=== PATIENT | female | born 1935 | race Caucasian/White ===

== ENCOUNTER 2016-06-13 01:08 | Inpatient (IN) | payer OTHER, BC ==
--- NOTE | 2016-06-13 01:34 | PDOC ---
History of Present Illness - General History Source: Patient Exam Limitations: No Limitations - History of Present Illness Initial Comments: 06/13/16 02:03 The patient is an 81 year old female with a PMHx of HTN who presents to the ED s /p fall. Patient states that she was taking a drying rack changer out of her closet when she lost her balance and fell backwards on her right hip. She now complains of right hip pain. She denies headache, dizziness, LOC, vision changes. She denies chest pain, SOB, palpitations. She denies fever, chills, nausea, vomiting, diarrhea. <Racheal Kyle - Last Filed: 06/13/16 04:51> <Jaylin Huang - Last Filed: 06/13/16 06:19> - General Stated Complaint: FALL, HIP PAIN Time Seen by Provider: 06/13/16 01:21 Past History <Racheal Kyle - Last Filed: 06/13/16 04:51> - Past Medical History Anemia: No Asthma: No Cancer: No Cardiac Disorders: No CVA: No COPD: No CHF: No Dementia: No Diabetes: No Disorders: No HTN: Yes (pt denies) Hypercholesterolemia: No Liver Disease: No Seizures: No Thyroid Disease: No - Surgical History Appendectomy: Yes Orthopedic Surgery: Yes (LT HIP) - Psycho/Social/Smoking Cessation Hx Anxiety: No Suicidal Ideation: No Smoking History: Never smoked Have you smoked in the past 12 months: No If you are a former smoker, when did you quit?: 1985 Hx Alcohol Use: No Drug/Substance Use Hx: No Substance Use Type: None Hx Substance Use Treatment: No <Jaylin Huang - Last Filed: 06/13/16 06:19> - Past Medical History Allergies/Adverse Reactions: Allergies Allergy/AdvReac Type Severity Reaction Status Date / Time No Known Allergies Allergy Verified 12/04/15 12:58 Review of Systems - Review of Systems Comments:: 06/13/16 02:03 GENERAL/CONSTITUTIONAL: No fever or chills. No weakness. HEAD, EYES, EARS, NOSE AND THROAT: No change in vision. No ear pain or discharge. No sore throat. CARDIOVASCULAR: No chest pain or shortness of breath. RESPIRATORY: No cough, wheezing, or hemoptysis. GASTROINTESTINAL: No nausea, vomiting, diarrhea or constipation. GENITOURINARY: No dysuria, frequency, or change in urination. MUSCULOSKELETAL: + right hip pain. No neck or back pain. SKIN: No rash NEUROLOGIC: No headache, vertigo, loss of consciousness, or change in strength/ sensation. ENDOCRINE: No increased thirst. No abnormal weight change. HEMATOLOGIC/LYMPHATIC: No anemia, easy bleeding, or history of blood clots. ALLERGIC/IMMUNOLOGIC: No hives or skin allergy. <Racheal Kyle - Last Filed: 06/13/16 04:51> *Physical Exam - Vital Signs Last Vital Signs Temp Pulse Resp BP Pulse Ox 98.3 F 74 16 182/69 6 L 06/13/16 01:21 06/13/16 01:21 06/13/16 01:21 06/13/16 01:21 06/13/16 01:21 - Physical Exam Comments: 06/13/16 02:03 GENERAL: Awake, alert, and fully oriented, in no acute distress HEAD: No signs of trauma EYES: PERRLA, EOMI, sclera anicteric, conjunctiva clear ENT: Auricles normal inspection, hearing grossly normal, nares patent, oropharynx clear without exudates. Moist mucosa NECK: Normal ROM, supple, no lymphadenopathy, JVD, or masses LUNGS: Breath sounds equal, clear to auscultation bilaterally. No wheezes, and no crackles HEART: Regular rate and rhythm, normal S1 and S2, no murmurs, rubs or gallops ABDOMEN: Soft, nontender, normoactive bowel sounds. No guarding, no rebound. No masses EXTREMITIES: Tenderness to palpation at greater trochanter. Normal range of motion, no edema. No clubbing or cyanosis. No cords, erythema. NEUROLOGICAL: Cranial nerves II through XII grossly intact. Normal speech, normal gait SKIN: Warm, Dry, normal turgor, no rashes or lesions noted. <Racheal Kyle - Last Filed: 06/13/16 04:51> ED Treatment Course - RADIOLOGY Radiograph Interpretation: 06/13/16 04:11 Right Hip X-Ray and Right Pelvis X-Ray Reported by Dr. Arthur Brown Impression: Linear lucency in the lateral subcapital femoral neck may be due to a nondisplaced fracture. If clinically indicated followup evaluation with CT scan of the right hip may be needed. 02/20/17 04:51 CT pelvis without contrast Reported by Dr. Arthur Brown Impression: Comminuted nondisplaced fractures of the right greater trochanter extending into the lateral femoral neck cortex. <Rachela Kyle - Last Filed: 06/13/16 04:51> Medical Decision Making - Medical Decision Making 06/13/16 02:51 Patient Name: Shahla Espinosa THIS IS A PRELIMINARY REPORT FROM IMAGING MACHINE BENDER EXAM: X-ray right hip and x-ray pelvis IMAGES: 5 EXAM DATE AND TIME: 2016-06-13 01:49:42.0 REASON FOR EXAM: 81 year-old female fall. COMPARISON: None. FINDINGS : Linear lucency in the lateral subcapital femoral neck may be due to a nondisplaced fracture. Decreased bone density. Surgical clips in the pelvis. Left hip arthroplasty noted. Degenerative disc disease in the lower lumbar spine. Calcified arteriosclerosis noted. IMPRESSION Linear lucency in the lateral subcapital femoral neck may be due to a nondisplaced fracture. If clinically indicated followup evaluation with CT scan of the right hip may be needed. THIS DOCUMENT HAS BEEN ELECTRONICALLY SIGNED 06/13/16 04:53 THIS IS A PRELIMINARY REPORT FROM IMAGING MACHINE BENDER EXAM: CT pelvis without contrast IMAGES: 894 EXAM DATE AND TIME: 2016-06-13 03:47:34.0 REASON FOR EXAM: 81-year-old female fall. COMPARISON: June 13, 2016 FINDINGS: Comminuted nondisplaced fractures of the right greater trochanter extending into the lateral femoral neck cortex. Severe degenerative disc disease and severe degenerative joint disease of the facets the lower lumbar spine. Severe spinal canal stenosis at L4-5. Moderate to severe neural foraminal narrowing at L4-5 and L5-S1. Moderate bladder distention may be associated with incomplete bladder voiding and pelvic floor muscle weakness. Constipation with diverticulosis without diverticulitis. Moderate calcified arteriosclerosis. Left hip arthroplasty noted. Mild degenerative joint disease of the right sacroiliac joint. Small umbilical hernia of omental fat without incarceration. IMPRESSION Comminuted nondisplaced fractures of the right greater trochanter extending into the lateral femoral neck cortex. THIS DOCUMENT HAS BEEN ELECTRONICALLY SIGNED 06/13/16 06:15 Pt states that she has baseline unsteady gait. She was in her apartment, where she lives alone, though she is a tenant in her brother's home. She states that she fell backwards and injured her left hip. She managed to drag herself to the phone and called her son in [place]. He came with EMS and brought pt to the ER. Pt has a hx of left hip replacement. She is alert and awake. She has slight pain in the hip with movement. Hip XR is unclear, but her CT scan shows a clear fracture. Pt was admitted to Dr. Meade, who is covering Dr. Gipson. <Jaylin Huang - Last Filed: 06/13/16 06:19> *DC/Admit/Observation/Transfer - Attestations Scribe Attestion: 06/13/16 02:04 Documentation prepared by Racheal Kyle, acting as medical stenographer for Jaylin Huang MD. <Racheal Kyle - Last Filed: 06/13/16 04:51> - Discharge Dispostion Admit: Yes <Jaylin Huang - Last Filed: 06/13/16 06:19> Diagnosis at time of Disposition: Hip fracture, right - Referrals
[2016-06-13] MEDS ORDERED: morphine CARPU-JECT 2 MG/1 ML DISP.SYRIN IM ONE (01:46)
[2016-06-13] MEDS ORDERED: morphine CARPU-JECT 2 MG/1 ML DISP.SYRIN ONE (02:14)
[2016-06-13] MEDS ORDERED: BACLOFEN 10 MG TABLET (FP) PO PRN (05:08)
[2016-06-13 06:36] LABS: BASOPHIL 0.5 % (0-2.0); EOSINOPHIL 1.1 % (0-4.5); MCH 30.7 pg (25.7-33.7); MCHC 33.8 g/dl (32.0-36.0); MEAN CELL VOLUME 90.9 fl (80-96); MEAN PLT VOLUME 7.8 fl (7.5-11.1); NEUTROPHILS 76.7 % (42.8-82.8); PLATELET COUNT 269 K/MM3 (134-434); RDW 15.1 % (11.6-15.6); WHITE BLOOD COUNT 8.7 K/mm3 (4.0-10.0)
[2016-06-13 07:24] LABS: ALBUMIN 3.6 g/dl (3.4-5.0); ALK PHOS 80 U/L (45-117); ANION GAP 10 (8-16); BILIRUBIN,TOTAL 0.6 mg/dL (0.2-1.0); CALCIUM 8.4 mg/dL (8.5-10.1); CO2 27 mmol/L (21-32); CREATININE 0.8 mg/dL (0.55-1.02); GLUCOSE,RANDOM 122 mg/dL (74-106); SGPT/ALT 23 U/L (12-78); TOT PROT 6.8 g/dl (6.4-8.2)
[2016-06-13 07:26] LABS: INR 1.13 (0.82-1.09); PROTHROMBIN TIME (PATIENT) 12.5 SEC (9.98-11.88); SGOT/AST 30 U/L (15-37)
[2016-06-13 09:05] LABS: URINE APPEARANCE SLCLOUDY; URINE BILIRUBIN NEGATIVE (NEGATIVE); URINE COLOR STRAW; URINE GLUCOSE (UA) NEGATIVE (NEGATIVE); URINE KETONE NEGATIVE (NEGATIVE); URINE NITRITE POSITIVE (NEGATIVE); URINE PROTEIN NEGATIVE (NEGATIVE); URINE UROBILINOGEN NEGATIVE E.U./dl (0.2-1.0)
[2016-06-13 09:06] LABS: URINE BLOOD 1+ (NEGATIVE); URINE LEUK ESTERASE 3+ (NEGATIVE)
[2016-06-13 09:14] LABS: URINE BACTERIA RARE /hpf (NONE SEEN); URINE RBC 3 /hpf (0-3); URINE WBC 40 /hpf (3-5)
[2016-06-13] MEDS: LISINOPRIL 10 MG TABLET (FP) PO SCH (10:00)
[2016-06-13] MEDS: amLODIPine BESYLATE 10 MG TABLET (FP) PO SCH (10:00)
--- NOTE | 2016-06-13 11:46 | HP ---
Admitting History and Physical - Admission Chief Complaint: leg pain, s/p fall History of Present Illness: 81 yo female presents to the hospital with right leg pain after falling. Patient notes that she had been reaching in her room to hang up her sweater when she suddenly started to fall backwards and then fell to the gound. No loss of consciousness or dizziness at the time. Did have a fall last year as well, requiring arthroplasty of left hip. In ED noted to have non-displaced fracture of the right femur. Patient currently without pain when lying still. No recent fevers or shortness of breath. Has noted increased urination in ED, trying to get up frequently to urinate. ( Grant placed in ED) History Source: Patient, Medical Record Limitations to Obtaining History: No Limitations - Past Medical History Cardiovascular: Yes: HTN Gastrointestinal: Yes: Constipation, Other (adenomatous colon polyp) Endocrine: Yes: Diabetes Mellitus - Past Surgical History Past Surgical History: Yes: Appendectomy Additional Past Surgical History: Left hip arthroplasty s/p fall - Smoking History Smoking history: Never smoked Have you smoked in the past 12 months: No If you are a former smoker, when did you quit?: 1985 - Alcohol/Substance Use Hx Alcohol Use: No History of Substance Use: reports: None - Social History ADL: Independent 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 History of Recent Travel: No Home Medications - Allergies Allergies/Adverse Reactions: Allergies Allergy/AdvReac Type Severity Reaction Status Date / Time No Known Allergies Allergy Verified 12/04/15 12:58 - Home Medications Home Medications: Ambulatory Orders Aleve 1 tablet PO TID PRN 06/13/16 Family Disease History - Family Disease History Family Disease History: CA: Father ( 87 lung cancer), Mother ( 92 lung cancer), Sister (lung cancer) Review of Systems - Review of Systems Constitutional: denies: Chills, Fever, Loss of Appetite, Night Sweats Eyes: reports: No Symptoms HENT: denies: Difficult Swallowing, Epistaxis, Throat Pain Neck: reports: No Symptoms Cardiovascular: denies: Chest Pain, Palpitations Respiratory: denies: Cough, SOB Gastrointestinal: denies: Abdominal Pain, Diarrhea, Dysphagia, Nausea, Vomiting Genitourinary: denies: Burning, Discharge, Dysuria Neurological: denies: Change in LOC, Dizziness Physical Examination Vital Signs: Vital Signs Temperature 98.2 F 06/13/16 09:20 Pulse Rate 81 02/20/17 09:55 Respiratory Rate 16 06/13/16 09:55 Blood Pressure 153/93 06/13/16 09:55 O2 Sat by Pulse Oximetry (%) 94 L 06/13/16 09:55 Constitutional: Yes: No Distress, Calm Eyes: Yes: Conjunctiva Clear, EOM Intact, PERRL HENT: Yes: Atraumatic, Normocephalic Neck: Yes: Supple, Trachea Midline Cardiovascular: Yes: Regular Rate and Rhythm, S1, S2. No: Murmur Respiratory: Yes: Regular, CTA Bilaterally. No: Rales, Rhonchi, Wheezes Gastrointestinal: Yes: Normal Bowel Sounds, Soft. No: Distention, Tenderness Musculoskeletal: Yes: Other (pain to palpation right hip) Edema: No Neurological: Yes: Alert, Oriented Labs: CBC, BMP 06/13/16 06:31 06/13/16 06:31 Imaging - Results Chest X-ray: Report Reviewed (no acute lung disease) Cat Scan: Report Reviewed (non-displavced fracture greater trochanter right femur) Problem List - Problems (1) Hip fracture, right Assessment/Plan: -to be evaluated by ortho -may need arthroplasty -pain control Code(s): S72.001A - FRACTURE OF UNSP PART OF NECK OF RIGHT FEMUR, INIT (2) UTI (urinary tract infection) Assessment/Plan: -start Ceftriaxone for UTI Code(s): N39.0 - URINARY TRACT INFECTION, SITE NOT SPECIFIED (3) Hypertension Assessment/Plan: -on amlodipine and lisinopril Code(s): I10 - ESSENTIAL (PRIMARY) HYPERTENSION (4) Spinal stenosis Assessment/Plan: -prn muscle relaxant ordered (takes Baclofen at home) Code(s): M48.00 - SPINAL STENOSIS, SITE UNSPECIFIED Qualifiers: Spinal region: lumbar Qualified Code(s): M48.06 - Spinal stenosis, lumbar region
[2016-06-13 12:21] VITALS: BMI 55.0
[2016-06-13] MEDS: CEFTRIAXONE 50 ML IVPB SCH (13:07)
--- NOTE | 2016-06-13 16:13 | EKG ---
Test Reason : Blood Pressure : / mmHG Vent. Rate : 077 BPM Atrial Rate : 077 BPM P-R Int : 128 ms QRS Dur : 078 ms QT Int : 380 ms P-R-T Axes : 047 041 023 degrees QTc Int : 430 ms SINUS RHYTHM WITH MARKED SINUS ARRHYTHMIA SEPTAL INFARCT , AGE UNDETERMINED ABNORMAL ECG WHEN COMPARED WITH ECG OF 04-DEC-2015 12:57, SEPTAL INFARCT IS NOW PRESENT T WAVE VARIATION Confirmed by DEE HYMAN, BECKY ([id number]) on 06/13/2016 4:12:41 PM Referred By: Confirmed By:BECKY PRICE MD
[2016-06-13] MEDS: oxyCODONE HCL 5 MG TABLET PO PRN (21:40)
--- NOTE | 2016-06-14 08:11 | CONSULT ---
Consult - text type - Consultation Consultation Note: FULL CONSULT DICTATED IMP: RIGHT GREATER TROCHANTER FX PLAN: WBAT WITH ANALGESICS, PT, DC PLANNING --> PROBABLY WILL NEED SNF
--- NOTE | 2016-06-14 08:30 | CONS ---
DATE OF CONSULTATION: 06/14/2016 ORTHOPEDIC CONSULTATION/DINORAH STEPHEN: Patient is an 81-year-old female complaining of pain in her right hip status post fall. She was initially seen in the [facility] diagnosed with a hip fracture and admitted to [facility] for further orthopedic evaluation and possible operative intervention, negative LOC. PHYSICAL EXAMINATION: The patient has equal limb length. Some mild tenderness over the greater trochanter. No pubic tenderness. No groin tenderness. Ileum, SI joint, and sacrum are all without tenderness. Mild swelling in the proximal thigh. Calf is soft, nontender. Good range of motion in the ankle and toes. Patient has minimal pain with internal and external rotation of the hip, has difficulty with straight-leg raising, but with assistance, can perform it. Otherwise, neurovascularly intact. IMAGING: X-rays and CT scan evaluation revealed a non-displaced fracture of the right greater trochanter with no extension into the intertrochanteric or femoral neck region. IMPRESSION: Right intertrochanteric hip fracture. PLAN: No operative intervention required. Patient can be out of bed to chair, weightbearing as tolerated with analgesics, physical therapy. Patient may need SNF placement. Will follow the patient while in the hospital. Thank you for this consultation. VIJAY PURVIS M.D. [id number]
[2016-06-14 08:45] LABS: CALCIUM 8.7 mg/dl (8.4-10.2)
[2016-06-14 09:29] LABS: BASOPHIL 0.4 % (0-2.0); EOSINOPHIL 5.4 % (0-4.5); MCH 30.3 pg (25.7-33.7); MCHC 32.8 g/dl (32.0-36.0); MEAN CELL VOLUME 92.4 fl (80-96); MEAN PLT VOLUME 7.6 fl (7.5-11.1); NEUTROPHILS 60.5 % (42.8-82.8); PLATELET COUNT 248 K/MM3 (134-434); RDW 14.3 % (11.6-15.6); WHITE BLOOD COUNT 5.8 K/mm3 (4.0-10.0)
[2016-06-14] MEDS: amLODIPine BESYLATE 10 MG TABLET (FP) PO SCH (09:51)
[2016-06-14] MEDS: CEFTRIAXONE 50 ML IVPB SCH (09:52)
[2016-06-14] MEDS: LISINOPRIL 10 MG TABLET (FP) PO SCH (09:57)
--- NOTE | 2016-06-14 12:20 | PN ---
Physical Exam: SUBJECTIVE: Patient seen and examined, patient reports pain to right posterior hip, denies any dizziness, chest pain or shortness of breath. OBJECTIVE: patient is a 81 y/o female with a past medical history of hypertension. Patient was admitted from the emergency department for a nondisplaced fracture of the right great trachanter. Vital Signs Period Temp Pulse Resp BP Sys/[place] Pulse Ox Last 24 Hr 97.7 F-100.1 F 66-87 16-18 127-152/46-53 94-94 GENERAL: The patient is awake, alert, and fully oriented, in no acute distress. HEAD: Normal with no signs of trauma. EYES: PERRL, extraocular movements intact, sclera anicteric, conjunctiva clear. No ptosis. ENT: Ears normal, nares patent, oropharynx clear without exudates, moist mucous membranes. NECK: Trachea midline, full range of motion, supple. LUNGS: Breath sounds equal, clear to auscultation bilaterally, no wheezes, no crackles, no accessory muscle use. HEART: Regular rate and rhythm, S1, S2 without murmur, rub or gallop. ABDOMEN: Soft, nontender, nondistended, normoactive bowel sounds, no guarding, no rebound, no hepatosplenomegaly, no masses. : terry draining clear yellow urine EXTREMITIES: 2+ pulses, warm, well-perfused, no edema. pain to right posterior hip upon bearing weight on the extremity. point tenderness noted to the Sciatic notch NEUROLOGICAL: Cranial nerves II through XII grossly intact. Normal speech, gait not observed. PSYCH: Normal mood, normal affect. SKIN: Warm, dry, normal turgor, no rashes or lesions noted Laboratory Results - last 24 hr 06/14/16 06/14/16 07:30 07:30 WBC 5.8 RBC 3.63 Hgb 11.0 Hct 33.5 MCV 92.4 MCHC 32.8 RDW 14.3 Plt Count 248 MPV 7.6 Neutrophils % 60.5 Lymphocytes % 25.8 Monocytes % 7.9 Eosinophils % 5.4 H Basophils % 0.4 Sodium 140 Potassium 4.0 Chloride 104 Carbon Dioxide 30 H Anion Gap 6 L BUN 14 Creatinine 1.0 Random Glucose 133 H Calcium 8.7 Active Medications Generic Name Dose Route Start Last Admin Trade Name Freq PRN Reason Stop Dose Admin Amlodipine Besylate 10 mg 06/13/16 10:00 06/14/16 09:51 Norvasc - PO 10 mg DAILY LEODAN Administration Baclofen 10 mg 06/13/16 05:08 Lioresal - PO TID PRN BACK PAIN Ceftriaxone Sodium 50 mls @ 100 mls/hr 06/13/16 12:15 06/14/16 09:52 Rocephin 1gm Ivpb (Pre-Docked) IVPB 100 mls/hr DAILY LEODAN Administration Lactobacillus Acidophilus 1 tab 06/14/16 12:00 Bacid - PO DAILY LEODAN Lisinopril 10 mg 06/13/16 10:00 06/14/16 09:57 Prinivil PO Not Given DAILY LEODAN Ondansetron HCl 4 mg 06/14/16 11:57 Zofran Injection IVPB 06/14/16 11:58 ONCE ONE Oxycodone HCl 5 mg 06/13/16 05:08 06/13/16 21:40 Roxicodone - PO 5 mg Q4H PRN Administration MODERATE PAIN Microbiology 06/13/16 08:51 Urine - Urine - Catheterized Urine Culture - Preliminary Lactose Fermenting Neg Bacilli IMAGING ct pelvis w/o contrast, comminuted nondisplaced fracture of the greater trochanter of the right femur with no additional fracture of dislocation chest xray, no acute pathology ASSESSMENT/PLAN: 1) ortho nondisplaced right greater trochanter fracture of right femur - prn pain medication - orthopedist, Dr Maciel was consulted and following, weight bearing as tolerated - PT eval spinal stenosis - physical exam consistent with sciatica, continue prn baclofen 2) card hypertension - continue amlopdine and lisinopril - b/p at goal 3) urinary tract infection - urine culture, preliminary lactose fermenting neg bacilli, continue rocephin, awaiting final to narrow down antibiotics - d/c terry F/E/N - low sodium diet ppx - zantac - heparin - oob - pt - scd dispo: requires inpatient care, possible discharge tomm to SNF for short term rehab. case discussed with case management. Visit type - Emergency Visit Emergency Visit: Yes ED Registration Date: 06/13/16 Care time: The patient presented to the Emergency Department on the above date and was hospitalized for further evaluation of their emergent condition. - New Patient This patient is new to me today: Yes Date on this admission: 06/14/16 - Critical Care Critical Care patient: No - Discharge Referral Referred to [facility] No
[2016-06-14] MEDS ORDERED: ACETAMINOPHEN 1000 MG/100 ML VIAL (NON FORMULARY) IVPB ONE (12:30)
[2016-06-14] MEDS ORDERED: ONDANSETRON 4 MG/2 ML VIAL IVPB ONE (12:30)
[2016-06-14] MEDS: LACTOBACILLUS ACIDOPHILUS 1 EACH TAB (FP) PO SCH (12:34)
[2016-06-14] MEDS: RANITIDINE HCL 150 MG TABLET (FP) PO SCH (13:52)
[2016-06-14] MEDS: oxyCODONE HCL 5 MG TABLET PO PRN (21:45)
[2016-06-14] MEDS: HEPARIN NA (PORCINE) 5,000 UNITS/ML 1ML VIAL SQ SCH (22:36)
--- NOTE | 2016-06-15 07:50 | PN ---
Progress Note (short form) - Note Progress Note: Ortho Pt seen and examined s/p right greater troch fx +ttp, + swelling, calf soft, nt nvi a/p PT WBAt dvt ppx pain control d/c planning d/w Dr. Maciel
[2016-06-15] MEDS: HEPARIN NA (PORCINE) 5,000 UNITS/ML 1ML VIAL SQ SCH ×2 (09:22→21:47)
[2016-06-15] MEDS: CEFTRIAXONE 50 ML IVPB SCH (09:22)
[2016-06-15] MEDS: LACTOBACILLUS ACIDOPHILUS 1 EACH TAB (FP) PO SCH (09:22)
[2016-06-15] MEDS: LISINOPRIL 10 MG TABLET (FP) PO SCH (09:22)
[2016-06-15] MEDS: RANITIDINE HCL 150 MG TABLET (FP) PO SCH (09:22)
[2016-06-15] MEDS: amLODIPine BESYLATE 10 MG TABLET (FP) PO SCH (09:22)
[2016-06-15] MEDS: oxyCODONE HCL 5 MG TABLET PO PRN (10:02)
--- NOTE | 2016-06-15 16:33 | PN ---
Progress Note, Physician Chief Complaint: Ms Espinosa says she is still having pain in her R hip but it is improving. No cp , sob, n/v. - Current Medication List Current Medications: Active Medications Amlodipine Besylate (Norvasc -) 10 mg PO DAILY [facility] Last Admin: 06/15/16 09:22 Dose: 10 mg Baclofen (Lioresal -) 10 mg PO TID PRN PRN Reason: BACK PAIN Heparin Sodium (Porcine) (Heparin -) 5,000 unit SQ BID [facility] Last Admin: 06/15/16 09:22 Dose: 5,000 unit Ceftriaxone Sodium (Rocephin 1gm Ivpb (Pre-Docked)) 50 mls @ 100 mls/hr IVPB DAILY [facility] Last Admin: 06/15/16 09:22 Dose: 100 mls/hr Lactobacillus Acidophilus (Bacid -) 1 tab PO DAILY [facility] Last Admin: 06/15/16 09:22 Dose: 1 tab Lisinopril (Prinivil) 10 mg PO DAILY [facility] Last Admin: 06/15/16 09:22 Dose: 10 mg Oxycodone HCl (Roxicodone -) 5 mg PO Q4H PRN PRN Reason: MODERATE PAIN Last Admin: 06/15/16 10:02 Dose: 5 mg Ranitidine HCl (Zantac -) 150 mg PO DAILY [facility] Last Admin: 06/15/16 09:22 Dose: 150 mg - Objective Vital Signs: Vital Signs Temperature 98.5 F 06/15/16 14:08 Pulse Rate 69 06/15/16 14:08 Respiratory Rate 16 06/15/16 14:08 Blood Pressure 156/56 06/15/16 14:08 O2 Sat by Pulse Oximetry (%) 91 L 06/15/16 14:08 Constitutional: Yes: Well Nourished, No Distress, Calm Cardiovascular: Yes: Regular Rate and Rhythm. No: Gallop, Murmur, Rub Respiratory: Yes: Regular, CTA Bilaterally. No: Rales, Rhonchi, Wheezes Gastrointestinal: Yes: Normal Bowel Sounds, Soft. No: Distention, Tenderness Extremities: Yes: WNL Edema: No Labs: CBC, BMP 06/14/16 07:30 06/14/16 07:30 INR, PTT INR 1.13 (0.82-1.09) 06/13/16 06:31 Problem List - Problems (1) Hip fracture, right Assessment/Plan: -followed by ortho, no need for intervention -continue pain control and PT -plan for discharge to SNF tomorrow Code(s): S72.001A - FRACTURE OF UNSP PART OF NECK OF RIGHT FEMUR, INIT (2) UTI (urinary tract infection) Assessment/Plan: -growing citrobacter -sensitive to rocephin, day 3 -will change to oral augmentin tomorrow for 5 day course Code(s): N39.0 - URINARY TRACT INFECTION, SITE NOT SPECIFIED (3) Hypertension Assessment/Plan: -continue lisinopril and amlodipine Code(s): I10 - ESSENTIAL (PRIMARY) HYPERTENSION (4) Spinal stenosis Assessment/Plan: -continue baclofen -PT at SNF Code(s): M48.00 - SPINAL STENOSIS, SITE UNSPECIFIED Qualifiers: Spinal region: lumbar Qualified Code(s): M48.06 - Spinal stenosis, lumbar region
[2016-06-16 06:38] VITALS: BP 157/49; PULSE 70; TEMP 99.5
[2016-06-16] MEDS ORDERED: AMOX TR/POT CLAV 875MG/125MG TABLETS (FP) PO SCH (08:00)
--- NOTE | 2016-06-16 08:42 | PN ---
Progress Note (short form) - Note Progress Note: Ortho Pt seen and examined s/p right greater troch fx +ttp, incr rom, calf soft, nt nvi a/p PT WBAt dvt ppx pain control d/c to rehab today d/w Dr. Maciel
--- NOTE | 2016-06-16 09:28 | DS ---
Physical Examination Vital Signs: Vital Signs Temperature 99.5 F 06/16/16 06:37 Pulse Rate 70 06/16/16 06:37 Respiratory Rate 18 06/16/16 06:37 Blood Pressure 157/49 06/16/16 06:37 O2 Sat by Pulse Oximetry (%) 96 06/16/16 06:37 Constitutional: Yes: Well Nourished, No Distress, Calm Cardiovascular: Yes: Regular Rate and Rhythm. No: Gallop, Murmur, Rub Respiratory: Yes: Regular, CTA Bilaterally. No: Rales, Rhonchi, Wheezes Gastrointestinal: Yes: Normal Bowel Sounds, Soft. No: Distention, Tenderness Extremities: Yes: WNL Edema: No Labs: CBC, BMP 06/14/16 07:30 06/14/16 07:30 Discharge Summary Reason For Visit: HIP FRACTURE, RIGHT Current Active Problems Acute kidney failure (Acute) DVT prophylaxis (Acute) Diabetes (Acute) Fracture of left hip (Acute) Hip fracture, right (Acute) Hypertension (Acute) Intractable low back pain (Acute) Hospital Course: (1) Hip fracture, right Code(s): S72.001A - FRACTURE OF UNSP PART OF NECK OF RIGHT FEMUR, INIT (2) UTI (urinary tract infection) Code(s): N39.0 - URINARY TRACT INFECTION, SITE NOT SPECIFIED (3) Hypertension Code(s): I10 - ESSENTIAL (PRIMARY) HYPERTENSION (4) Spinal stenosis Code(s): M48.00 - SPINAL STENOSIS, SITE UNSPECIFIED Qualifiers: Spinal region: lumbar Qualified Code(s): M48.06 - Spinal stenosis, lumbar region Ms Espinosa is a very pleasant 81 year old female who comes in with fall and hip fracture. She was seen by ortho and decided she did not require surgery. However she needs further PT at a SNF for rehabilitation. She was also found to have a UTI and started on rocephin. Urine culture came back positive for citrobacter that was sensitive to both rocephin and augmentin, she was changed over to augmentin to finish the course. She was continued on amlodipine and lisinopril and her blood pressure was controlled. Her pain is controlled with baclofen and oxycodone. She is safe for discharge to SNF. She will be continued on heparin as DVT PPx while in SNF until she is ambulating enough to not need DVT PPx. 35 minutes spent in preparation of this discharge Condition: Good - Instructions Diet, Activity, Other Instructions: regular diet. Up with assistance, further activity per PT at SNF. Referrals: Curtis Gipson MD [Primary Care Provider] - Fercho Maciel MD [Staff Physician] - Disposition: LONGTERM FACILITY - Home Medications Comprehensive Discharge Medication List: Ambulatory Orders Amlodipine Besylate [Norvasc -] 10 mg PO DAILY tablet 06/16/16 Amox-Tr/K Cl [Augmentin 875-125mg Tablet -] 1 tab PO BID@0800,1730 2 Days Baclofen [Lioresal -] 10 mg PO TID PRN #0 tablet 06/16/16 Heparin - 5,000 unit SQ BID vial 06/16/16 Lactobacillus Acidophilus [Bacid -] 1 tab PO DAILY tab 06/16/16 Lisinopril [Prinivil] 10 mg PO DAILY tablet 06/16/16 Oxycodone HCl [Roxicodone -] 5 mg PO Q4H PRN #0 tablet MDD 30mg 06/16/16 Ranitidine [Zantac -] 150 mg PO DAILY tablet 06/16/16
[2016-06-16] MEDS: HEPARIN NA (PORCINE) 5,000 UNITS/ML 1ML VIAL SQ SCH (09:32)
[2016-06-16] MEDS: LACTOBACILLUS ACIDOPHILUS 1 EACH TAB (FP) PO SCH (09:33)
[2016-06-16] MEDS: LISINOPRIL 10 MG TABLET (FP) PO SCH (09:33)
[2016-06-16] MEDS: RANITIDINE HCL 150 MG TABLET (FP) PO SCH (09:33)
[2016-06-16] MEDS: amLODIPine BESYLATE 10 MG TABLET (FP) PO SCH (09:33)
== END 2016-06-16 11:39 | DRG 536 ==
LOC: JER 01:08 → JERBED 05:01 → FM/S 11:36
PROVIDERS: ADMIT Specialist; ATTEND Orthopaedic Surgery
DX: S72.144A Nondisplaced intertrochanteric fracture of right femur, initial encounter for closed fracture (principal); N39.0 Urinary tract infection, site not specified; I10 Essential (primary) hypertension; W17.89XA Other fall from one level to another, initial encounter; Y93.89 Activity, other specified; Y92.008 Other place in unspecified non-institutional (private) residence as the place of occurrence of the external cause; Y99.8 Other external cause status; M48.06 Spinal stenosis, lumbar region
CPT/HCPCS: 36415; 71010-TC; 72192-TC; 73523-TC; 80048; 80053; 81003; 81015; 85025; 85610; 85730; 86850; 86900; 86901; 87086; 87186; 93005; 93010; 97116-GP; 97162-PG; 99285-25; J1644

== ENCOUNTER 2016-06-18 00:17 | Emergency (ER) | payer OTHER, BC ==
[2016-06-18 00:25] VITALS: BP 163/74; PULSE 75; TEMP 98.1; BMI 26.6
--- NOTE | 2016-06-18 00:33 | PDOC ---
History of Present Illness - General Chief Complaint: Injury Stated Complaint: FALL Time Seen by Provider: 06/18/16 00:26 History Source: Patient, EMS, [facility] Records Exam Limitations: No Limitations - History of Present Illness Initial Comments: 06/18/16 00:48 This is an 81-year-old female who was ambulating down the [place] after taking Percocet and lost her balance falling forward. Patient was unable to get up and was on the floor for approximately 40-45 minutes prior to staff at the intermediate finding her on the floor. Patient did not hit her head, did not pass out. Patient said she just lost her balance as she was walking. Patient is supposed to be walking with a walker but did not use her walker. Patient's only complaint at this time is a skin tear to her left elbow area and pain in her left foot. Patient denies any pain in her wrists or hands. Patient denies hitting her head. PAST MEDICAL HISTORY: no significant history PAST SURGICAL HISTORY: no significant history FAMILY HISTORY: no pertinant history SOCIAL HISTORY: Pt lives in a intermediate and is retired MEDICATIONS: reviewed ALLERGIES: As per nursing notes Review of Systems General: No fevers or chills, no weakness, no weight loss , fall HEENT: No change in vision. No sore throat,. No ear pain CardioVascular: No chest pain or shortness of breath Respiratory:No cough, or wheezing. Gastrointestinal: no nausea, vomitting, diarrhea or constipation, No rectal bleeding Genitourinary: No dysuria, hematuria, or frequency Musculoskeletal: No joint or muscle pain or swelling, left foot pain Neurologic: No headache, vertigo, dizziness or loss of consciousness Psychiatric: nor depression Skin: No rashes or easy bruising, left elbow skin tear Endocrine: no increased thirst or abnormal weight change Allergic: no skin or latex allergy All other systems reviewed and normal GENERAL: The patient is awake, alert, and fully oriented, in no acute distress. HEAD: Normal with no signs of trauma. EYES: Pupils equal, round and reactive to light, extraocular movements intact, sclera anicteric, conjunctiva clear. EXTREMITIES: Normal range of motion, no edema. Left foot there is some mild tenderness on the dorsum of the foot between the fourth and fifth toes. Neurovascular is intact Left elbow area there is a small skin tear approximately 1 cm x 1 cm. There is no tenderness of palpation of the bony structures is full range of motion of the elbow without any discomfort. Neurovascular is intact NEUROLOGICAL: Normal speech, gait not tested PSYCH: Normal mood, normal affect. SKIN: Warm, Dry, normal turgor, no rashes or lesions noted. 06/18/16 02:05 X-rays foot no acute fracture dislocation. Pelvis: Left hip prosthesis In good position, no other acute fractures appreciated. Assessment and plan: This is an 81-year-old female who lost her balance while attempting to ambulate from her bed to the bathroom and went down on her hands and knees. Patient has a small skin tear of her left elbow otherwise no acute fractures or injuries. Patient's had x-rays that were negative and discharged Back to the intermediate. Past History - Past Medical History Allergies/Adverse Reactions: Allergies Allergy/AdvReac Type Severity Reaction Status Date / Time No Known Allergies Allergy Verified 06/13/16 11:55 Home Medications: Ambulatory Orders Amlodipine Besylate [Norvasc -] 10 mg PO DAILY tablet 06/16/16 Amox-Tr/K Cl [Augmentin 875-125mg Tablet -] 1 tab PO BID@0800,1730 2 Days Heparin - 5,000 unit SQ BID vial 06/16/16 Lactobacillus Acidophilus [Bacid -] 1 tab PO DAILY tab 06/16/16 Lisinopril [Prinivil] 10 mg PO DAILY tablet 06/16/16 Oxycodone HCl [Roxicodone -] 5 mg PO Q4H PRN #0 tablet MDD 30mg 06/16/16 Baclofen [Lioresal -] 10 mg PO DAILY PRN 06/18/16 Ranitidine [Zantac -] 150 mg PO BID 06/18/16 Anemia: No Asthma: No Cancer: No Cardiac Disorders: No CVA: No COPD: No CHF: No Dementia: No Diabetes: No GI Disorders: No Disorders: No HTN: Yes (pt denies) Hypercholesterolemia: No Liver Disease: No Seizures: No Thyroid Disease: No - Surgical History Abdominal Surgery: No Appendectomy: No Cardiac Surgery: No Cholecystectomy: No Lung Surgery: No Neurologic Surgery: No Orthopedic Surgery: Yes (LEFT THR) - Psycho/Social/Smoking Cessation Hx Anxiety: No Suicidal Ideation: No Smoking History: Unknown if ever smoked Have you smoked in the past 12 months: No If you are a former smoker, when did you quit?: 1985 Hx Alcohol Use: No Drug/Substance Use Hx: No Substance Use Type: None Hx Substance Use Treatment: No *Physical Exam - Vital Signs Last Vital Signs Temp Pulse Resp BP Pulse Ox 98.1 F 75 16 163/74 95 06/18/16 00:23 06/18/16 00:23 06/18/16 00:23 06/18/16 00:23 06/18/16 00:23 *DC/Admit/Observation/Transfer Diagnosis at time of Disposition: Fall Foot sprain Qualifiers: Encounter type: initial encounter Laterality: left Qualified Code(s): S93.602A - Unspecified sprain of left foot, initial encounter - Discharge Dispostion Disposition: HOME Condition at time of disposition: Stable Admit: No - Referrals Referrals: Miguelina Sequeira MD [Primary Care Provider] - - Patient Instructions Additional Instructions: Tylenol or Motrin as needed for pain in the foot. Use a walker when walking to help keep you from losing her balance. Return to the emergency department immediately with ANY new, persistent or worsening symptoms. Continue any medications as previously prescribed by your physician. You should follow up with your primary doctor as soon as possible regarding today's emergency department visit. . Please make sure your doctor reviews the results of your emergency evaluation. Thank you for coming to the Emergency Department today for your care. It was a pleasure to see you today. Please note that your evaluation is INCOMPLETE until you follow-up with your doctor.
== END 2016-06-18 03:53 | disposition home or self-care (01) ==
LOC: FER 00:17
DX: S93.602A Unspecified sprain of left foot, initial encounter (principal); W18.39XA Other fall on same level, initial encounter; Y93.9 Activity, unspecified; Y92.128 Other place in nursing home as the place of occurrence of the external cause; I10 Essential (primary) hypertension; Z87.891 Personal history of nicotine dependence; Z99.89 Dependence on other enabling machines and devices
CPT/HCPCS: 70450-TC; 72170-TC; 73630-TC-LT; 99282-25

== ENCOUNTER 2016-08-12 14:37 | Inpatient (IN) | payer OTHER ==
--- NOTE | 2016-08-12 14:45 | PDOC ---
[id number] Source: Patient Exam Limitations: No Limitations - History of Present Illness Initial Comments: 81 yo F history L hip replacement, R hip fx, HTN (noncompliant with meds) presents with L hip/low back pain. She states that she was recently discharged home from SNF, but now she is suddenly unable to ambulate without severe pain. She denies any trauma. She states that she has been walking with a cane, although PT recommended that she use a walker. She states that she previously fell using a walker. Denies fever, chills. She has had recent increased urinary frequency and urgency. +Prior history of UTI. <Bety Benoit - Last Filed: 08/12/16 18:52> - General Chief Complaint: Pain, Acute Stated Complaint: LEFT HIP PAIN Time Seen by Provider: 08/12/16 14:45 Past History <Heidi Tracy - Last Filed: 08/12/16 18:48> - Past Medical History Anemia: No Asthma: No Cancer: No Cardiac Disorders: No CVA: No COPD: No CHF: No Dementia: No Diabetes: No GI Disorders: No Disorders: No HTN: Yes (pt denies) Hypercholesterolemia: No Liver Disease: No Seizures: No Thyroid Disease: No - Surgical History Abdominal Surgery: No Appendectomy: No Cardiac Surgery: No Cholecystectomy: No Lung Surgery: No Neurologic Surgery: No Orthopedic Surgery: Yes (LEFT THR) - Psycho/Social/Smoking Cessation Hx Anxiety: No Suicidal Ideation: No Smoking History: Never smoked Have you smoked in the past 12 months: No If you are a former smoker, when did you quit?: 1985 Hx Alcohol Use: No Drug/Substance Use Hx: No Substance Use Type: None Hx Substance Use Treatment: No <Bety Benoit - Last Filed: 08/12/16 18:52> - Past Medical History Allergies/Adverse Reactions: Allergies Allergy/AdvReac Type Severity Reaction Status Date / Time No Known Allergies Allergy Verified 08/12/16 14:48 Home Medications: Ambulatory Orders Amlodipine Besylate [Norvasc -] 10 mg PO DAILY tablet 06/16/16 Lisinopril [Prinivil] 10 mg PO DAILY tablet 06/16/16 Oxycodone HCl [Roxicodone -] 5 mg PO Q4H PRN #0 tablet MDD 30mg 06/16/16 Baclofen [Lioresal -] 10 mg PO DAILY PRN 06/18/16 Ranitidine [Zantac -] 150 mg PO BID 06/18/16 Lansoprazole [Prevacid] 30 mg PO DAILY 08/12/16 Review of Systems - Review of Systems Able to Perform ROS?: Yes Comments:: GENERAL/CONSTITUTIONAL: No fever or chills. No weakness. HEAD, EYES, EARS, NOSE AND THROAT: No change in vision. No ear pain or discharge. No sore throat. CARDIOVASCULAR: No chest pain or shortness of breath. RESPIRATORY: No cough, wheezing, or hemoptysis. GASTROINTESTINAL: No nausea, vomiting, diarrhea or constipation. GENITOURINARY: No dysuria. +Increased frequency. MUSCULOSKELETAL: +L hip and low back pain. No neck pain. SKIN: No rash NEUROLOGIC: No headache, vertigo, loss of consciousness, or change in strength/ sensation. ENDOCRINE: No increased thirst. No abnormal weight change. HEMATOLOGIC/LYMPHATIC: No anemia, easy bleeding, or history of blood clots. ALLERGIC/IMMUNOLOGIC: No hives or skin allergy. <Bety Benoit - Last Filed: 08/12/16 18:52> *Physical Exam - Vital Signs Last Vital Signs Temp Pulse Resp BP Pulse Ox 98 F 71 18 183/63 97 08/12/16 14:38 08/12/16 14:38 08/12/16 14:38 08/12/16 14:38 08/12/16 14:38 <Heidi Tracy - Last Filed: 08/12/16 18:48> - Physical Exam Comments: GENERAL: Awake, alert, and fully oriented, in no acute distress HEAD: No signs of trauma EYES: PERRLA, EOMI, sclera anicteric, conjunctiva clear ENT: Auricles normal inspection, hearing grossly normal, nares patent, oropharynx clear without exudates. Moist mucosa NECK: Normal ROM, supple, no lymphadenopathy, JVD, or masses LUNGS: Breath sounds equal, clear to auscultation bilaterally. No wheezes, and no crackles HEART: Regular rate and rhythm, normal S1 and S2, no murmurs, rubs or gallops ABDOMEN: Soft, nontender, normoactive bowel sounds. No guarding, no rebound. No masses EXTREMITIES: Normal range of motion, no edema. No clubbing or cyanosis. No cords, erythema, or tenderness NEUROLOGICAL: Cranial nerves II through XII grossly intact. Normal speech. Motor and sensation intact. Antalgic gait- limping on L side. Unable to take more than 2 steps with assistance. SKIN: Warm, Dry, normal turgor, no rashes or lesions noted. <Bety Benoit - Last Filed: 08/12/16 18:52> ED Treatment Course - LABORATORY CBC & Chemistry Diagram: 08/12/16 17:35 08/12/16 17:35 - ADDITIONAL ORDERS Additional order review: Laboratory Results 08/12/16 16:11 Urine Color Straw Urine Appearance Clear Urine pH 7.0 Ur Specific [place] <= 1.005 Urine Protein Negative Urine Glucose (UA) Negative Urine Ketones Negative Urine Blood Trace-lysed Urine Nitrite Negative Urine Bilirubin Negative Urine Urobilinogen 0.2 e.u/dl Ur Leukocyte Esterase 3+ H - RADIOLOGY Radiograph Interpretation: 08/12/16 16:30 Left hip x-ray as reviewed by Dr. Casillas reports no acute hip fracture or dislocation. Metallic hip prosthesis is in proper position. <KaiaeduardoHeidi - Last Filed: 08/12/16 18:48> - LABORATORY CBC & Chemistry Diagram: 08/12/16 17:35 08/12/16 17:35 <Bety Benoit - Last Filed: 08/12/16 18:52> Medical Decision Making - Medical Decision Making 08/12/16 18:48 Phone call placed to patient's PCP, Dr. Gipson at 6:11 pm. Call was returned at 6:17 pm and case was discussed. <DemarcusHeidi - Last Filed: 08/12/16 18:48> - Medical Decision Making 08/12/16 18:11 Pt found to have UTI on labs. She has urinated 3 times since ED arrival, and complained of frequency and urgency, so this would explain her symptoms. Chart review shows one prior UTI, positive for citrobacter. I attempted to have her ambulate, however, she was only able to take 2 steps before having difficulty walking (despite getting percocet for pain). She is not safe for discharge home. High risk for falls due to pain and unsteady gait, as well as inability to take her antibiotics independently without being able to walk. Will admit. Discussed with Dr. Gipson. <Bety eBnoit - Last Filed: 08/12/16 18:52> *DC/Admit/Observation/Transfer - Attestations Scribe Attestion: 08/12/16 16:32 Documentation prepared by Heidi Tracy, acting as medical parasitologist for Bety Benoit MD. <Heidi Tracy - Last Filed: 08/12/16 18:48> - Discharge Dispostion Admit: Yes <Bety Benoit - Last Filed: 08/12/16 18:52> Diagnosis at time of Disposition: Inability to ambulate due to hip UTI (urinary tract infection) Qualifiers: Urinary tract infection type: site unspecified Hematuria presence: without hematuria Qualified Code(s): N39.0 - Urinary tract infection, site not specified - Discharge Dispostion Condition at time of disposition: Stable - Referrals Referrals: Curtis Gipson MD [Primary Care Provider] -
[2016-08-12 16:19] LABS: URINE APPEARANCE Clear; URINE BILIRUBIN Negative (NEGATIVE); URINE BLOOD Trace-lysed (NEGATIVE); URINE GLUCOSE (UA) Negative (NEGATIVE); URINE KETONE Negative (NEGATIVE); URINE NITRITE Negative (NEGATIVE); URINE PROTEIN Negative (NEGATIVE); URINE UROBILINOGEN 0.2 E.U/dl (0.2-1.0)
[2016-08-12 16:20] LABS: URINE COLOR STRAW; URINE LEUK ESTERASE 3+ (NEGATIVE)
[2016-08-12] MEDS ORDERED: OXYCODONE/APAP 5/325MG COMBO TABLET PO ONE (16:44)
[2016-08-12] MEDS ORDERED: OXYCODONE/APAP 5/325MG COMBO TABLET ONE (16:45)
[2016-08-12] MEDS ORDERED: CEFTRIAXONE 1 GM in DEXTROSE 5%-WATER - 50 ML IVPB ONE (17:25)
[2016-08-12] MEDS ORDERED: cefTRIAXone SODIUM 1 GM VIAL ONE (17:38)
[2016-08-12 17:46] LABS: BASOPHIL 1.7 % (0-2.0); EOSINOPHIL 3.9 % (0-4.5); MCH 31.4 pg (25.7-33.7); MCHC 35.2 g/dl (32.0-36.0); MEAN CELL VOLUME 89.3 fl (80-96); MEAN PLT VOLUME 7.1 fl (7.5-11.1); NEUTROPHILS 62.9 % (42.8-82.8); PLATELET COUNT 391 K/MM3 (134-434); WHITE BLOOD COUNT 7.7 K/mm3 (4.0-10.8)
[2016-08-12 17:55] LABS: URINE BACTERIA MODERATE /hpf (NEGATIVE); URINE RBC 0-2 /hpf (0-3); URINE WBC 20-30 (3-5)
[2016-08-12 17:59] LABS: ALBUMIN 3.9 g/dl (3.5-5.0); ALK PHOS 78 U/L (32-92); ANION GAP 9 (8-16); BILIRUBIN,TOTAL 0.5 mg/dl (0.2-1.0); CO2 24 mmol/L (22-28); GLUCOSE,RANDOM 113 mg/dl (74-106); SGOT/AST 19 U/L (10-42); SGPT/ALT 11 U/L (10-40); TOT PROT 6.9 g/dl (6.4-8.3)
[2016-08-12 22:39] VITALS: BMI 25.7
[2016-08-12] MEDS: HEPARIN NA (PORCINE) 5,000 UNITS/ML 1ML VIAL SQ SCH (22:52)
[2016-08-12] MEDS: RANITIDINE HCL 150 MG TABLET (FP) PO SCH (22:52)
[2016-08-13] MEDS: oxyCODONE HCL 5 MG TABLET PO PRN (05:33)
[2016-08-13 08:32] LABS: BASOPHIL 1.1 % (0-2.0); EOSINOPHIL 4.7 % (0-4.5); MCH 31.2 pg (25.7-33.7); MCHC 33.5 g/dl (32.0-36.0); MEAN CELL VOLUME 93.3 fl (80-96); MEAN PLT VOLUME 6.8 fl (7.5-11.1); NEUTROPHILS 61.5 % (42.8-82.8); PLATELET COUNT 330 K/MM3 (134-434); RDW 13.1 % (11.6-15.6)
[2016-08-13 09:00] LABS: ALBUMIN 3.4 g/dl (3.5-5.0); CALCIUM 8.8 mg/dl (8.4-10.2); COCKROFT - GAULT 49.572; TOT PROT 6.3 g/dl (6.4-8.3)
[2016-08-13 09:16] LABS: BILIRUBIN,TOTAL 0.5 mg/dl (0.2-1.0)
--- NOTE | 2016-08-13 09:38 | CONSULT ---
Consult Consult Specialty:: infectious diseases Referred by:: Reason for Consultation:: uti - History of Present Illness Chief Complaint: weakness fall History of Present Illness: 81 yo F history L hip replacement, R hip fx, HTN presents with L hip/low back pain.patient was in snf and then recently went home . patient mentions that she told her son that she is in severe pain while ambulating and called the ambulance and came to the hospital. She has been non complaint with PT instructions of using a walker and has been using the cane--reason being she is not able to cope with walker and has hurt her foot when she was doing it patient report of increased frequency but denies fever chills work up does suggest uti patient started on ceftriaxone this morning patient feels much better - History Source History Provided By: Patient - Past Medical History Cardio/Vascular: Yes: HTN Gastrointestinal: Yes: Constipation, Other (adenomatous colon polyp) ...LMP Comment: PT IS 81 YEAR OLD ...: No Endocrine: Yes: Diabetes Mellitus - Past Surgical History Past Surgical History: Yes: Appendectomy - Alcohol/Substance Use Hx Alcohol Use: No History of Substance Use: reports: None - Smoking History Smoking history: Never smoked Have you smoked in the past 12 months: No If you are a former smoker, when did you quit?: 1985 - Social History Usual Living Arrangement: Other (with her brother) ADL: Independent 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 History of Recent Travel: No Home Medications - Allergies Allergies/Adverse Reactions: Allergies Allergy/AdvReac Type Severity Reaction Status Date / Time No Known Allergies Allergy Verified 08/12/16 14:48 - Home Medications Home Medications: Ambulatory Orders Amlodipine Besylate [Norvasc -] 10 mg PO DAILY tablet 06/16/16 Lisinopril [Prinivil] 10 mg PO DAILY tablet 06/16/16 Oxycodone HCl [Roxicodone -] 5 mg PO Q4H PRN #0 tablet MDD 30mg 06/16/16 Baclofen [Lioresal -] 10 mg PO DAILY PRN 06/18/16 Ranitidine [Zantac -] 150 mg PO BID 06/18/16 Lansoprazole [Prevacid] 30 mg PO DAILY 08/12/16 Family Disease History - Family Disease History Family Disease History: CA: Father ( 87 lung cancer), Mother ( 92 lung cancer), Sister (lung cancer) Review of Systems - Review of Systems Constitutional: reports: No Symptoms Eyes: reports: No Symptoms HENT: reports: No Symptoms Neck: reports: No Symptoms Cardiovascular: reports: No Symptoms Respiratory: reports: No Symptoms Gastrointestinal: reports: No Symptoms Genitourinary: reports: Dysuria Musculoskeletal: reports: No Symptoms Integumentary: reports: No Symptoms Neurological: reports: No Symptoms Endocrine: reports: No Symptoms Hematology/Lymphatic: reports: No Symptoms Psychiatric: reports: No Symptoms Physical Exam Vital Signs: Vital Signs Temperature 98.0 F 08/13/16 04:56 Pulse Rate 65 08/13/16 04:56 Respiratory Rate 16 08/13/16 04:56 Blood Pressure 120/52 08/13/16 04:56 O2 Sat by Pulse Oximetry (%) 95 08/13/16 04:57 Constitutional: Yes: Well Nourished, Calm, Mild Distress Eyes: Yes: Conjunctiva Clear HENT: Yes: Atraumatic, Normocephalic Neck: Yes: Supple, Trachea Midline Cardiovascular: Yes: Regular Rate and Rhythm Respiratory: Yes: Regular, CTA Bilaterally Gastrointestinal: Yes: Normal Bowel Sounds, Soft Musculoskeletal: Yes: Back Pain, Other (hip pain) Extremities: Yes: WNL Neurological: Yes: Alert, Oriented Labs: CBC, BMP 08/13/16 08:20 08/13/16 08:20 Imaging - Results Chest X-ray: Report Reviewed, Image Reviewed X-ray: Report Reviewed, Image Reviewed Assessment/Plan uti back pain plan agree with ceftriaxone await for cx report to come back
[2016-08-13] MEDS: amLODIPine BESYLATE 10 MG TABLET (FP) PO SCH (09:59)
[2016-08-13] MEDS: LISINOPRIL 10 MG TABLET (FP) PO SCH (09:59)
[2016-08-13] MEDS: HEPARIN NA (PORCINE) 5,000 UNITS/ML 1ML VIAL SQ SCH ×2 (09:59→21:58)
[2016-08-13] MEDS: RANITIDINE HCL 150 MG TABLET (FP) PO SCH ×2 (09:59→21:58)
[2016-08-13] MEDS: CEFTRIAXONE 50 ML IVPB SCH (10:00)
--- NOTE | 2016-08-13 19:06 | HP ---
Admitting History and Physical - Primary Care Physician PCP: Curtis Gipson - Admission Chief Complaint: left hip and back pain History of Present Illness: 81 yo female with past medical history significant for hypertension, DM, s/p left hip arthoplasty last year, h/o non displaced right hip fracture not requiring surgery, admitted with moderate to severe left hip pain and back pain. She was recently discharged home from SNF, but now she is unable to ambulate without severe pain. She denies any fall or trauma. She states that she has been walking with a cane, although PT recommended that she use a walker. She states that she previously fell using a walker. Also, c/o increased frequency and urgency. Denies fever, chills. H/O recent UTI. Denies chest pain, shortness of breath, palpitation or dizziness. 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 History of Recent Travel: No Home Medications - Allergies Allergies/Adverse Reactions: Allergies Allergy/AdvReac Type Severity Reaction Status Date / Time No Known Allergies Allergy Verified 08/12/16 14:48 - Home Medications Home Medications: Ambulatory Orders Amlodipine Besylate [Norvasc -] 10 mg PO DAILY tablet 06/16/16 Lisinopril [Prinivil] 10 mg PO DAILY tablet 06/16/16 Oxycodone HCl [Roxicodone -] 5 mg PO Q4H PRN #0 tablet MDD 30mg 06/16/16 Baclofen [Lioresal -] 10 mg PO DAILY PRN 06/18/16 Ranitidine [Zantac -] 150 mg PO BID 06/18/16 Lansoprazole [Prevacid] 30 mg PO DAILY 08/12/16 Family Disease History - Family Disease History Family Disease History: CA: Father ( 87 lung cancer), Mother ( 92 lung cancer), Sister (lung cancer) Review of Systems - Review of Systems Constitutional: reports: No Symptoms Eyes: reports: No Symptoms HENT: reports: No Symptoms Neck: reports: No Symptoms Cardiovascular: reports: No Symptoms Respiratory: reports: No Symptoms Gastrointestinal: reports: No Symptoms Genitourinary: reports: Dysuria, Frequency Musculoskeletal: reports: Back Pain, Joint Pain (left hip pain) Integumentary: reports: No Symptoms Neurological: reports: No Symptoms Endocrine: reports: No Symptoms Hematology/Lymphatic: reports: No Symptoms Psychiatric: reports: No Symptoms Physical Examination Vital Signs: Vital Signs Temperature 99.1 F 08/13/16 15:30 Pulse Rate 60 08/13/16 15:30 Respiratory Rate 20 08/13/16 15:30 Blood Pressure 113/55 08/13/16 15:30 O2 Sat by Pulse Oximetry (%) 97 08/13/16 15:30 Constitutional: Yes: Well Nourished, Moderate Distress Eyes: Yes: Conjunctiva Clear, EOM Intact HENT: Yes: Atraumatic, Normocephalic Neck: Yes: Supple, Trachea Midline Cardiovascular: Yes: Regular Rate and Rhythm, S1, S2 Respiratory: Yes: Regular, CTA Bilaterally Gastrointestinal: Yes: Normal Bowel Sounds, Soft ...Rectal Exam: Yes: Deferred Musculoskeletal: Yes: Back Pain Edema: No Peripheral Pulses WNL: Yes Neurological: Yes: Alert, Oriented ...Motor Strength: WNL Psychiatric: Yes: Alert, Oriented Labs: CBC, BMP 08/13/16 08:20 08/13/16 08:20 Imaging - Results X-ray: Report Reviewed Problem List - Problems (1) Left hip pain Assessment/Plan: Hip x ray reviewed. No fracture. Prothesis in place. Pain management with oxycodone. Physical therapy. May need rehab Code(s): M25.552 - PAIN IN LEFT HIP (2) Back pain Assessment/Plan: Pain management as mentioned above. Physical therapy. Code(s): M54.9 - DORSALGIA, UNSPECIFIED Qualifiers: Back pain location: low back pain Chronicity: acute Back pain laterality: left Sciatica presence: with sciatica (3) Hypertension Assessment/Plan: Reasonable control. Continue amlodipine 10 mg daily and lisinopril 10 mg daily. Low salt diet. Code(s): I10 - ESSENTIAL (PRIMARY) HYPERTENSION (4) Diabetes Assessment/Plan: Check a1c Was on metformin in the past. Code(s): E11.9 - TYPE 2 DIABETES MELLITUS WITHOUT COMPLICATIONS Qualifiers: Diabetes mellitus complication status: without complication (5) UTI (urinary tract infection) Assessment/Plan: Continue rocephin till culture reports available. ID consult appreciated. Code(s): N39.0 - URINARY TRACT INFECTION, SITE NOT SPECIFIED Qualifiers: Urinary tract infection type: site unspecified Hematuria presence: without hematuria Qualified Code(s): N39.0 - Urinary tract infection, site not specified
[2016-08-13] MEDS: ACETAMINOPHEN 325 MG TABLET (FP) PO PRN (21:59)
[2016-08-14 08:45] LABS: ANION GAP 9 (8-16); CALCIUM 9.3 mg/dl (8.4-10.2); CO2 26 mmol/L (22-28); GLUCOSE,RANDOM 121 mg/dl (74-106)
[2016-08-14] MEDS ORDERED: CEFTRIAXONE 100 ML IVPB ONE (11:18)
[2016-08-14] MEDS: LIDOCAINE 5% TOPICAL PATCH TP SCH (11:23)
[2016-08-14] MEDS: oxyCODONE HCL 5 MG TABLET PO PRN ×2 (11:26→21:57)
[2016-08-14] MEDS: amLODIPine BESYLATE 10 MG TABLET (FP) PO SCH (11:26)
[2016-08-14] MEDS: CEFTRIAXONE 50 ML IVPB SCH (11:27)
[2016-08-14] MEDS: HEPARIN NA (PORCINE) 5,000 UNITS/ML 1ML VIAL SQ SCH ×2 (11:27→21:55)
[2016-08-14] MEDS: LISINOPRIL 10 MG TABLET (FP) PO SCH (11:27)
[2016-08-14] MEDS: RANITIDINE HCL 150 MG TABLET (FP) PO SCH ×2 (11:28→21:56)
--- NOTE | 2016-08-14 12:31 | PN ---
Progress Note, Physician History of Present Illness: stable no new issues - Current Medication List Current Medications: Active Medications Acetaminophen (Tylenol -) 650 mg PO Q6H PRN PRN Reason: FEVER OR PAIN Last Admin: 08/13/16 21:59 Dose: 650 mg Amlodipine Besylate (Norvasc -) 10 mg PO DAILY [facility] Last Admin: 08/14/16 11:26 Dose: 10 mg Heparin Sodium (Porcine) (Heparin -) 5,000 unit SQ BID [facility] Last Admin: 08/14/16 11:27 Dose: 5,000 unit Ceftriaxone Sodium (Rocephin 1gm Ivpb (Pre-Docked)) 50 mls @ 100 mls/hr IVPB DAILY [facility] Last Admin: 08/14/16 11:27 Dose: 100 mls/hr Lidocaine (Lidoderm Patch -) 1 patch TP DAILY [facility] Last Admin: 08/14/16 11:23 Dose: 1 patch Lisinopril (Prinivil) 10 mg PO DAILY [facility] Last Admin: 08/14/16 11:27 Dose: 10 mg Oxycodone HCl (Roxicodone -) 5 mg PO Q4H PRN PRN Reason: MODERATE PAIN Last Admin: 08/14/16 11:26 Dose: 5 mg Ranitidine HCl (Zantac -) 150 mg PO BID [facility] Last Admin: 08/14/16 11:28 Dose: 150 mg - Objective Vital Signs: Vital Signs Temperature 98.2 F 08/14/16 06:12 Pulse Rate 58 L 08/14/16 06:12 Respiratory Rate 08/14/16 06:12 Blood Pressure 152/64 08/14/16 06:12 O2 Sat by Pulse Oximetry (%) 98 08/13/16 22:09 Constitutional: Yes: No Distress, Calm Neck: Yes: Supple Cardiovascular: Yes: Regular Rate and Rhythm Gastrointestinal: Yes: Normal Bowel Sounds, Soft Musculoskeletal: Yes: Muscle Pain, Other Neurological: Yes: Alert, Oriented Psychiatric: Yes: Alert Labs: CBC, BMP 08/13/16 08:20 08/14/16 06:30 Assessment/Plan uti back pain plan continue current mgmt await for final results to be back
[2016-08-14] MEDS: ACETAMINOPHEN 325 MG TABLET (FP) PO PRN ×2 (15:55→21:57)
--- NOTE | 2016-08-14 20:54 | PN ---
Progress Note (short form) - Note Progress Note: Left hip pain and back pain improved. Discussed in detail with the patient and son. Will need rehab. Patient and son agrees. 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 History of Recent Travel: No Home Medications - Allergies Allergies/Adverse Reactions: Allergies Allergy/AdvReac Type Severity Reaction Status Date / Time No Known Allergies Allergy Verified 08/12/16 14:48 - Home Medications Home Medications: Ambulatory Orders Amlodipine Besylate [Norvasc -] 10 mg PO DAILY tablet 06/16/16 Lisinopril [Prinivil] 10 mg PO DAILY tablet 06/16/16 Oxycodone HCl [Roxicodone -] 5 mg PO Q4H PRN #0 tablet MDD 30mg 06/16/16 Baclofen [Lioresal -] 10 mg PO DAILY PRN 06/18/16 Ranitidine [Zantac -] 150 mg PO BID 06/18/16 Lansoprazole [Prevacid] 30 mg PO DAILY 08/12/16 Family Disease History - Family Disease History Family Disease History: CA: Father ( 87 lung cancer), Mother ( 92 lung cancer), Sister (lung cancer) Review of Systems - Review of Systems Constitutional: reports: No Symptoms Eyes: reports: No Symptoms HENT: reports: No Symptoms Neck: reports: No Symptoms Cardiovascular: reports: No Symptoms Respiratory: reports: No Symptoms Gastrointestinal: reports: No Symptoms Genitourinary: reports: Dysuria, Frequency Musculoskeletal: reports: Back Pain, Joint Pain (left hip pain) Integumentary: reports: No Symptoms Neurological: reports: No Symptoms Endocrine: reports: No Symptoms Hematology/Lymphatic: reports: No Symptoms Psychiatric: reports: No Symptoms Physical Examination Vital Signs: Vital Signs Period Temp Pulse Resp BP Sys/[place] Pulse Ox Last 24 Hr 98.2 F-98.4 F 58-72 16-20 124-152/53-64 96-98 Constitutional: Yes: Well Nourished, Moderate Distress Eyes: Yes: Conjunctiva Clear, EOM Intact HENT: Yes: Atraumatic, Normocephalic Neck: Yes: Supple, Trachea Midline Cardiovascular: Yes: Regular Rate and Rhythm, S1, S2 Respiratory: Yes: Regular, CTA Bilaterally Gastrointestinal: Yes: Normal Bowel Sounds, Soft ...Rectal Exam: Yes: Deferred Musculoskeletal: Yes: Back Pain Edema: No Peripheral Pulses WNL: Yes Neurological: Yes: Alert, Oriented ...Motor Strength: WNL Psychiatric: Yes: Alert, Oriented Labs: CBC, BMP 08/13/16 08:20 08/14/16 06:30 Imaging - Results X-ray: Report Reviewed Problem List - Problems (1) Left hip pain Assessment/Plan: Some improvement. Still difficulty with ambulation. Pain management with oxycodone. Physical therapy. Patient agrees for rehab. Code(s): M25.552 - PAIN IN LEFT HIP (2) Back pain Assessment/Plan: Pain management as mentioned above. Physical therapy. Code(s): M54.9 - DORSALGIA, UNSPECIFIED Qualifiers: Back pain location: low back pain Chronicity: acute Back pain laterality: left Sciatica presence: with sciatica (3) Hypertension Assessment/Plan: Reasonable control. Continue amlodipine 10 mg daily and lisinopril 10 mg daily. Low salt diet. Code(s): I10 - ESSENTIAL (PRIMARY) HYPERTENSION (4) Diabetes Assessment/Plan: Check a1c Was on metformin in the past. Code(s): E11.9 - TYPE 2 DIABETES MELLITUS WITHOUT COMPLICATIONS Qualifiers: Diabetes mellitus complication status: without complication (5) UTI (urinary tract infection) Assessment/Plan: Continue rocephin till culture reports available. ID follow up appreciated. Code(s): N39.0 - URINARY TRACT INFECTION, SITE NOT SPECIFIED Qualifiers: Urinary tract infection type: site unspecified Hematuria presence: without hematuria Qualified Code(s): N39.0 - Urinary tract infection, site not specified Problem List - Problems (1) Left hip pain Code(s): M25.552 - PAIN IN LEFT HIP (2) Back pain Code(s): M54.9 - DORSALGIA, UNSPECIFIED Qualifiers: Back pain location: low back pain Chronicity: acute Back pain laterality: left Sciatica presence: with sciatica (3) Hypertension Code(s): I10 - ESSENTIAL (PRIMARY) HYPERTENSION (4) Diabetes Code(s): E11.9 - TYPE 2 DIABETES MELLITUS WITHOUT COMPLICATIONS Qualifiers: Diabetes mellitus complication status: without complication (5) UTI (urinary tract infection) Code(s): N39.0 - URINARY TRACT INFECTION, SITE NOT SPECIFIED Qualifiers: Urinary tract infection type: site unspecified Hematuria presence: without hematuria Qualified Code(s): N39.0 - Urinary tract infection, site not specified
[2016-08-15] MEDS: CEFTRIAXONE 50 ML IVPB SCH (09:00)
[2016-08-15] MEDS: LISINOPRIL 10 MG TABLET (FP) PO SCH (09:00)
[2016-08-15] MEDS: HEPARIN NA (PORCINE) 5,000 UNITS/ML 1ML VIAL SQ SCH ×2 (09:00→21:57)
[2016-08-15] MEDS: RANITIDINE HCL 150 MG TABLET (FP) PO SCH ×2 (09:00→21:56)
[2016-08-15] MEDS: amLODIPine BESYLATE 10 MG TABLET (FP) PO SCH (09:00)
--- NOTE | 2016-08-15 09:55 | PN ---
Progress Note, Physician Chief Complaint: Ms Espinosa says she is still having hip pain, it is unchanged from prior. No cp, sob, n/v. - Current Medication List Current Medications: Active Medications Acetaminophen (Tylenol -) 650 mg PO Q6H PRN PRN Reason: FEVER OR PAIN Last Admin: 08/14/16 21:57 Dose: 650 mg Amlodipine Besylate (Norvasc -) 10 mg PO DAILY [facility] Last Admin: 08/14/16 11:26 Dose: 10 mg Heparin Sodium (Porcine) (Heparin -) 5,000 unit SQ BID [facility] Last Admin: 08/14/16 21:55 Dose: 5,000 unit Ceftriaxone Sodium (Rocephin 1gm Ivpb (Pre-Docked)) 50 mls @ 100 mls/hr IVPB DAILY [facility] Last Admin: 08/14/16 11:27 Dose: 100 mls/hr Lidocaine (Lidoderm Patch -) 1 patch TP DAILY [facility] Last Admin: 08/14/16 11:23 Dose: 1 patch Lisinopril (Prinivil) 10 mg PO DAILY [facility] Last Admin: 08/14/16 11:27 Dose: 10 mg Oxycodone HCl (Roxicodone -) 5 mg PO Q4H PRN PRN Reason: MODERATE PAIN Last Admin: 08/14/16 21:57 Dose: 5 mg Ranitidine HCl (Zantac -) 150 mg PO BID [facility] Last Admin: 08/14/16 21:56 Dose: 150 mg - Objective Vital Signs: Vital Signs Temperature 98.4 F 08/15/16 06:44 Pulse Rate 62 08/15/16 06:44 Respiratory Rate 18 08/15/16 06:44 Blood Pressure 135/48 08/15/16 06:44 O2 Sat by Pulse Oximetry (%) 96 08/15/16 06:44 Constitutional: Yes: Well Nourished, No Distress, Calm Cardiovascular: Yes: Regular Rate and Rhythm. No: Gallop, Murmur, Rub Respiratory: Yes: Regular, CTA Bilaterally. No: Rales, Rhonchi, Wheezes Gastrointestinal: Yes: Normal Bowel Sounds, Soft. No: Distention, Tenderness Extremities: Yes: WNL Edema: No Labs: CBC, BMP 08/13/16 08:20 08/14/16 06:30 Assessment/Plan (1) Left hip pain Assessment/Plan: -chronic, patient says unchanged -continue PT and pain management -plan for SNF placement -patient agrees Code(s): M25.552 - PAIN IN LEFT HIP (2) Back pain Assessment/Plan: -as above Code(s): M54.9 - DORSALGIA, UNSPECIFIED Qualifiers: Back pain location: low back pain Chronicity: acute Back pain laterality: left Sciatica presence: with sciatica (3) Hypertension Assessment/Plan: -continue amlodipine and lisinopril -controlled Code(s): I10 - ESSENTIAL (PRIMARY) HYPERTENSION (4) Diabetes Assessment/Plan: -Hgb A1c is 6.8 -diet control Code(s): E11.9 - TYPE 2 DIABETES MELLITUS WITHOUT COMPLICATIONS Qualifiers: Diabetes mellitus complication status: without complication (5) UTI (urinary tract infection) Assessment/Plan: -appreciate ID assistance -continue rocephin -await culture results Code(s): N39.0 - URINARY TRACT INFECTION, SITE NOT SPECIFIED Qualifiers: Urinary tract infection type: site unspecified Hematuria presence: without hematuria Qualified Code(s): N39.0 - Urinary tract infection, site not specified
[2016-08-15] MEDS: LIDOCAINE 5% TOPICAL PATCH TP SCH (10:00)
--- NOTE | 2016-08-15 17:27 | PN ---
Progress Note, Physician History of Present Illness: patient doing well no complaints family in the room patient sitting in chair - Current Medication List Current Medications: Active Medications Acetaminophen (Tylenol -) 650 mg PO Q6H PRN PRN Reason: FEVER OR PAIN Last Admin: 08/14/16 21:57 Dose: 650 mg Amlodipine Besylate (Norvasc -) 10 mg PO DAILY [facility] Last Admin: 08/15/16 09:00 Dose: 10 mg Heparin Sodium (Porcine) (Heparin -) 5,000 unit SQ BID [facility] Last Admin: 08/15/16 09:00 Dose: 5,000 unit Ceftriaxone Sodium (Rocephin 1gm Ivpb (Pre-Docked)) 50 mls @ 100 mls/hr IVPB DAILY [facility] Last Admin: 08/15/16 09:00 Dose: 100 mls/hr Lidocaine (Lidoderm Patch -) 1 patch TP DAILY [facility] Last Admin: 08/15/16 10:00 Dose: 1 patch Lisinopril (Prinivil) 10 mg PO DAILY [facility] Last Admin: 08/15/16 09:00 Dose: 10 mg Oxycodone HCl (Roxicodone -) 5 mg PO Q4H PRN PRN Reason: MODERATE PAIN Last Admin: 08/14/16 21:57 Dose: 5 mg Ranitidine HCl (Zantac -) 150 mg PO BID [facility] Last Admin: 08/15/16 09:00 Dose: 150 mg - Objective Vital Signs: Vital Signs Temperature 98.3 F 08/15/16 14:55 Pulse Rate 66 08/15/16 14:55 Respiratory Rate 18 08/15/16 14:55 Blood Pressure 134/56 08/15/16 14:55 O2 Sat by Pulse Oximetry (%) 97 08/15/16 14:55 Constitutional: Yes: No Distress, Calm Cardiovascular: Yes: S1, S2 Respiratory: Yes: Regular, CTA Bilaterally Gastrointestinal: Yes: Normal Bowel Sounds, Soft Musculoskeletal: Yes: Other Extremities: Yes: Other Neurological: Yes: Alert, Oriented Psychiatric: Yes: Alert, Oriented Labs: CBC, BMP 08/13/16 08:20 08/14/16 06:30 Assessment/Plan uti back pain plan continue current mgmt await for identification of the organism and sensitivities
[2016-08-15] MEDS: oxyCODONE HCL 5 MG TABLET PO PRN (18:58)
[2016-08-16 08:42] LABS: BASOPHIL 1.6 % (0-2.0); EOSINOPHIL 3.9 % (0-4.5); MCH 30.8 pg (25.7-33.7); MCHC 32.9 g/dl (32.0-36.0); MEAN CELL VOLUME 93.7 fl (80-96); MEAN PLT VOLUME 7.8 fl (7.5-11.1); NEUTROPHILS 52.3 % (42.8-82.8); PLATELET COUNT 344 K/MM3 (134-434); RDW 13.2 % (11.6-15.6)
[2016-08-16 09:09] LABS: ANION GAP 9 (8-16); CALCIUM 9.2 mg/dl (8.4-10.2); CO2 27 mmol/L (22-28); CREATININE 1.1 mg/dl (0.6-1.3); GLUCOSE,RANDOM 131 mg/dl (74-106); MAGNESIUM 2.3 mg/dL (1.8-2.4); PHOSPHOROUS 4.4 mg/dl (2.5-4.6)
--- NOTE | 2016-08-16 09:46 | PN ---
Progress Note, Physician Chief Complaint: Ms Espinosa says she feels fine but the pain is "terrible". It is unchanged from previous. No cp, sob, n/v. - Current Medication List Current Medications: Active Medications Acetaminophen (Tylenol -) 650 mg PO Q6H PRN PRN Reason: FEVER OR PAIN Last Admin: 08/14/16 21:57 Dose: 650 mg Amlodipine Besylate (Norvasc -) 10 mg PO DAILY [facility] Last Admin: 08/15/16 09:00 Dose: 10 mg Heparin Sodium (Porcine) (Heparin -) 5,000 unit SQ BID [facility] Last Admin: 08/15/16 21:57 Dose: 5,000 unit Ceftriaxone Sodium (Rocephin 1gm Ivpb (Pre-Docked)) 50 mls @ 100 mls/hr IVPB DAILY [facility] Last Admin: 08/15/16 09:00 Dose: 100 mls/hr Lidocaine (Lidoderm Patch -) 1 patch TP DAILY [facility] Last Admin: 08/15/16 10:00 Dose: 1 patch Lisinopril (Prinivil) 10 mg PO DAILY [facility] Last Admin: 08/15/16 09:00 Dose: 10 mg Oxycodone HCl (Roxicodone -) 5 mg PO Q4H PRN PRN Reason: MODERATE PAIN Last Admin: 08/15/16 18:58 Dose: 5 mg Ranitidine HCl (Zantac -) 150 mg PO BID [facility] Last Admin: 08/15/16 21:56 Dose: 150 mg - Objective Vital Signs: Vital Signs Temperature 98.4 F 08/16/16 06:51 Pulse Rate 64 08/16/16 06:51 Respiratory Rate 19 08/16/16 07:52 Blood Pressure 132/41 08/16/16 06:51 O2 Sat by Pulse Oximetry (%) 95 08/16/16 07:52 Constitutional: Yes: Well Nourished, No Distress, Calm Cardiovascular: Yes: Regular Rate and Rhythm. No: Gallop, Murmur, Rub Respiratory: Yes: Regular, CTA Bilaterally. No: Rales, Rhonchi, Wheezes Gastrointestinal: Yes: Normal Bowel Sounds, Soft. No: Distention, Tenderness Extremities: Yes: WNL Edema: No Labs: CBC, BMP 08/16/16 07:20 08/16/16 07:20 Assessment/Plan (1) Left hip pain Assessment/Plan: -chronic, patient says unchanged -continue PT -spoke with niece, requested pain management consult -Dr Argueta consulted, await recommendations -plan for SNF placement -patient agrees Code(s): M25.552 - PAIN IN LEFT HIP (2) Back pain Assessment/Plan: -as above Code(s): M54.9 - DORSALGIA, UNSPECIFIED Qualifiers: Back pain location: low back pain Chronicity: acute Back pain laterality: left Sciatica presence: with sciatica (3) Hypertension Assessment/Plan: -continue amlodipine and lisinopril -controlled Code(s): I10 - ESSENTIAL (PRIMARY) HYPERTENSION (4) Diabetes Assessment/Plan: -Hgb A1c is 6.8 -diet control Code(s): E11.9 - TYPE 2 DIABETES MELLITUS WITHOUT COMPLICATIONS Qualifiers: Diabetes mellitus complication status: without complication (5) UTI (urinary tract infection) Assessment/Plan: -appreciate ID assistance -continue rocephin -await culture results, growing gram negative rods Code(s): N39.0 - URINARY TRACT INFECTION, SITE NOT SPECIFIED Qualifiers: Urinary tract infection type: site unspecified Hematuria presence: without hematuria Qualified Code(s): N39.0 - Urinary tract infection, site not specified
[2016-08-16] MEDS: HEPARIN NA (PORCINE) 5,000 UNITS/ML 1ML VIAL SQ SCH ×2 (10:00→21:24)
[2016-08-16] MEDS: CEFTRIAXONE 50 ML IVPB SCH (10:00)
[2016-08-16] MEDS: RANITIDINE HCL 150 MG TABLET (FP) PO SCH ×2 (10:00→21:24)
[2016-08-16] MEDS: amLODIPine BESYLATE 10 MG TABLET (FP) PO SCH (10:00)
[2016-08-16] MEDS: LISINOPRIL 10 MG TABLET (FP) PO SCH (10:00)
[2016-08-16] MEDS: LIDOCAINE 5% TOPICAL PATCH TP SCH (10:00)
--- NOTE | 2016-08-16 10:02 | EKG ---
Test Reason : Blood Pressure : / mmHG Vent. Rate : 071 BPM Atrial Rate : 071 BPM P-R Int : 124 ms QRS Dur : 082 ms QT Int : 398 ms P-R-T Axes : 042 011 056 degrees QTc Int : 432 ms SINUS RHYTHM WITH PREMATURE SUPRAVENTRICULAR COMPLEXES WHEN COMPARED WITH ECG OF 13-JUN-2016 05:57, PREMATURE SUPRAVENTRICULAR COMPLEXES ARE NOW PRESENT CRITERIA FOR SEPTAL INFARCT ARE NO LONGER PRESENT NONSPECIFIC T WAVE ABNORMALITY NO LONGER EVIDENT IN INFERIOR LEADS Confirmed by MD MAKENZIE, MYA ([id number]) on 08/16/2016 10:02:03 AM Referred By: MD LI Confirmed By:MYA BANEGAS MD
--- NOTE | 2016-08-16 15:39 | PN ---
Progress Note, Physician History of Present Illness: main issues is pain which is bad still no relief according to her - Current Medication List Current Medications: Active Medications Acetaminophen (Tylenol -) 650 mg PO Q6H PRN PRN Reason: FEVER OR PAIN Last Admin: 08/14/16 21:57 Dose: 650 mg Amlodipine Besylate (Norvasc -) 10 mg PO DAILY [facility] Last Admin: 08/16/16 10:00 Dose: 10 mg Heparin Sodium (Porcine) (Heparin -) 5,000 unit SQ BID [facility] Last Admin: 08/16/16 10:00 Dose: 5,000 unit Ceftriaxone Sodium (Rocephin 1gm Ivpb (Pre-Docked)) 50 mls @ 100 mls/hr IVPB DAILY [facility] Last Admin: 08/16/16 10:00 Dose: 100 mls/hr Lidocaine (Lidoderm Patch -) 1 patch TP DAILY [facility] Last Admin: 08/16/16 10:00 Dose: 1 patch Lisinopril (Prinivil) 10 mg PO DAILY [facility] Last Admin: 08/16/16 10:00 Dose: 10 mg Oxycodone HCl (Roxicodone -) 5 mg PO Q4H PRN PRN Reason: MODERATE PAIN Last Admin: 08/15/16 18:58 Dose: 5 mg Ranitidine HCl (Zantac -) 150 mg PO BID [facility] Last Admin: 08/16/16 10:00 Dose: 150 mg - Objective Vital Signs: Vital Signs Temperature 98.9 F 08/16/16 14:14 Pulse Rate 59 L 08/16/16 14:14 Respiratory Rate 16 08/16/16 14:14 Blood Pressure 119/44 08/16/16 14:14 O2 Sat by Pulse Oximetry (%) 94 L 08/16/16 14:14 Constitutional: Yes: Calm, Mild Distress Cardiovascular: Yes: S1, S2 Respiratory: Yes: Regular, CTA Bilaterally Gastrointestinal: Yes: Normal Bowel Sounds, Soft Musculoskeletal: Yes: Other Extremities: Yes: Other Neurological: Yes: Alert, Oriented Psychiatric: Yes: Alert, Oriented Labs: CBC, BMP 08/16/16 07:20 08/16/16 07:20 Assessment/Plan (1) Left hip pain Code(s): M25.552 - PAIN IN LEFT HIP (2) Back pain Code(s): M54.9 - DORSALGIA, UNSPECIFIED Qualifiers: Back pain location: low back pain Chronicity: acute Back pain laterality: left Sciatica presence: with sciatica (3) Hypertension Code(s): I10 - ESSENTIAL (PRIMARY) HYPERTENSION (4) Diabetes Code(s): E11.9 - TYPE 2 DIABETES MELLITUS WITHOUT COMPLICATIONS Qualifiers: Diabetes mellitus complication status: without complication (5) UTI (urinary tract infection) Code(s): N39.0 - URINARY TRACT INFECTION, SITE NOT SPECIFIED Qualifiers: Urinary tract infection type: site unspecified Hematuria presence: without hematuria Qualified Code(s): N39.0 - Urinary tract infection, site not specified organism noted plan continue iv abx will await for final plan patient might complete the course before she leaves pain mgmt
--- NOTE | 2016-08-16 19:11 | CONSULT ---
Consult Consult Specialty:: pain management Referred by:: pcp Reason for Consultation:: left sacral pain - History of Present Illness Chief Complaint: left sacral pain History of Present Illness: 81 yo F history L hip replacement, R hip fx, HTN presents with L hip/low back pain.patient was in snf and then recently went home . patient mentions that she told her son that she is in severe pain while ambulating and called the ambulance and came to the hospital. Pain is located in the left buttocks. 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 History of Recent Travel: No Home Medications - Allergies Allergies/Adverse Reactions: Allergies Allergy/AdvReac Type Severity Reaction Status Date / Time No Known Allergies Allergy Verified 08/12/16 14:48 - Home Medications Home Medications: Ambulatory Orders Amlodipine Besylate [Norvasc -] 10 mg PO DAILY tablet 06/16/16 Lisinopril [Prinivil] 10 mg PO DAILY tablet 06/16/16 Oxycodone HCl [Roxicodone -] 5 mg PO Q4H PRN #0 tablet MDD 30mg 06/16/16 Baclofen [Lioresal -] 10 mg PO DAILY PRN 06/18/16 Ranitidine [Zantac -] 150 mg PO BID 06/18/16 Lansoprazole [Prevacid] 30 mg PO DAILY 08/12/16 Family Disease History - Family Disease History Family Disease History: CA: Father ( 87 lung cancer), Mother ( 92 lung cancer), Sister (lung cancer) Physical Exam Vital Signs: Vital Signs Temperature 98.9 F 08/16/16 14:14 Pulse Rate 59 L 08/16/16 14:14 Respiratory Rate 16 08/16/16 14:14 Blood Pressure 119/44 04/25/17 14:14 O2 Sat by Pulse Oximetry (%) 94 L 08/16/16 14:14 Musculoskeletal: Yes: Muscle Weakness, Other (severe left sacral pain) Labs: CBC, BMP 08/16/16 07:20 08/16/16 07:20 Assessment/Plan Left sacral pain secondary to possible sacral insufficiency fx vs radiculopathy 1. MRI lumbar sacral spine non contrast 2. Will follow up after MRI
[2016-08-16] MEDS: oxyCODONE HCL 5 MG TABLET PO PRN (21:24)
[2016-08-17] MEDS: amLODIPine BESYLATE 10 MG TABLET (FP) PO SCH (09:56)
[2016-08-17] MEDS: RANITIDINE HCL 150 MG TABLET (FP) PO SCH ×2 (09:56→21:08)
[2016-08-17] MEDS: HEPARIN NA (PORCINE) 5,000 UNITS/ML 1ML VIAL SQ SCH (09:56)
[2016-08-17] MEDS: LISINOPRIL 10 MG TABLET (FP) PO SCH (09:56)
[2016-08-17] MEDS: LIDOCAINE 5% TOPICAL PATCH TP SCH (09:57)
[2016-08-17] MEDS: CEFTRIAXONE 50 ML IVPB SCH (09:57)
--- NOTE | 2016-08-17 10:07 | PN ---
Progress Note, Physician History of Present Illness: pain main issues continues to have severe pain - Current Medication List Current Medications: Active Medications Acetaminophen (Tylenol -) 650 mg PO Q6H PRN PRN Reason: FEVER OR PAIN Last Admin: 08/14/16 21:57 Dose: 650 mg Amlodipine Besylate (Norvasc -) 10 mg PO DAILY [facility] Last Admin: 08/17/16 09:56 Dose: 10 mg Heparin Sodium (Porcine) (Heparin -) 5,000 unit SQ BID [facility] Last Admin: 08/17/16 09:56 Dose: 5,000 unit Ceftriaxone Sodium (Rocephin 1gm Ivpb (Pre-Docked)) 50 mls @ 100 mls/hr IVPB DAILY [facility] Last Admin: 08/17/16 09:57 Dose: 100 mls/hr Lidocaine (Lidoderm Patch -) 1 patch TP DAILY [facility] Last Admin: 08/17/16 09:57 Dose: 1 patch Lisinopril (Prinivil) 10 mg PO DAILY [facility] Last Admin: 08/17/16 09:56 Dose: 10 mg Oxycodone HCl (Roxicodone -) 5 mg PO Q4H PRN PRN Reason: MODERATE PAIN Last Admin: 08/16/16 21:24 Dose: 5 mg Ranitidine HCl (Zantac -) 150 mg PO BID [facility] Last Admin: 08/17/16 09:56 Dose: 150 mg - Objective Vital Signs: Vital Signs Temperature 98.4 F 08/17/16 06:00 Pulse Rate 64 08/17/16 06:00 Respiratory Rate 18 08/17/16 06:00 Blood Pressure 105/44 08/17/16 06:00 O2 Sat by Pulse Oximetry (%) 97 08/16/16 22:56 Constitutional: Yes: Moderate Distress Cardiovascular: Yes: Regular Rate and Rhythm Respiratory: Yes: Regular, CTA Bilaterally Gastrointestinal: Yes: Normal Bowel Sounds, Soft Breast(s): Yes: Other Musculoskeletal: Yes: Muscle Pain Extremities: Yes: WNL Neurological: Yes: Alert, Oriented Psychiatric: Yes: Alert, Oriented Labs: CBC, BMP 08/16/16 07:20 08/16/16 07:20 Assessment/Plan (1) Left hip pain Code(s): M25.552 - PAIN IN LEFT HIP (2) Back pain Code(s): M54.9 - DORSALGIA, UNSPECIFIED Qualifiers: Back pain location: low back pain Chronicity: acute Back pain laterality: left Sciatica presence: with sciatica (3) Hypertension Code(s): I10 - ESSENTIAL (PRIMARY) HYPERTENSION (4) Diabetes Code(s): E11.9 - TYPE 2 DIABETES MELLITUS WITHOUT COMPLICATIONS Qualifiers: Diabetes mellitus complication status: without complication (5) UTI (urinary tract infection) Code(s): N39.0 - URINARY TRACT INFECTION, SITE NOT SPECIFIED Qualifiers: Urinary tract infection type: site unspecified Hematuria presence: without hematuria Qualified Code(s): N39.0 - Urinary tract infection, site not specified organism noted plan continue iv abx will await for final plan patinet will not need abx on discharge will stop abx after todays dose
--- NOTE | 2016-08-17 10:13 | PN ---
Progress Note, Physician Chief Complaint: Ms Espinosa says pain is unchanged. No cp, sob, n/v. - Current Medication List Current Medications: Active Medications Acetaminophen (Tylenol -) 650 mg PO Q6H PRN PRN Reason: FEVER OR PAIN Last Admin: 08/14/16 21:57 Dose: 650 mg Amlodipine Besylate (Norvasc -) 10 mg PO DAILY [facility] Last Admin: 08/17/16 09:56 Dose: 10 mg Heparin Sodium (Porcine) (Heparin -) 5,000 unit SQ BID [facility] Last Admin: 08/17/16 09:56 Dose: 5,000 unit Ceftriaxone Sodium (Rocephin 1gm Ivpb (Pre-Docked)) 50 mls @ 100 mls/hr IVPB DAILY [facility] Last Admin: 08/17/16 09:57 Dose: 100 mls/hr Lidocaine (Lidoderm Patch -) 1 patch TP DAILY [facility] Last Admin: 08/17/16 09:57 Dose: 1 patch Lisinopril (Prinivil) 10 mg PO DAILY [facility] Last Admin: 08/17/16 09:56 Dose: 10 mg Oxycodone HCl (Roxicodone -) 5 mg PO Q4H PRN PRN Reason: MODERATE PAIN Last Admin: 08/16/16 21:24 Dose: 5 mg Ranitidine HCl (Zantac -) 150 mg PO BID [facility] Last Admin: 08/17/16 09:56 Dose: 150 mg - Objective Vital Signs: Vital Signs Temperature 98.4 F 08/17/16 06:00 Pulse Rate 64 08/17/16 06:00 Respiratory Rate 18 08/17/16 06:00 Blood Pressure 105/44 08/17/16 06:00 O2 Sat by Pulse Oximetry (%) 97 08/16/16 22:56 Constitutional: Yes: Well Nourished, No Distress, Calm Cardiovascular: Yes: Regular Rate and Rhythm. No: Gallop, Murmur, Rub Respiratory: Yes: Regular, CTA Bilaterally. No: Rales, Rhonchi, Wheezes Gastrointestinal: Yes: Normal Bowel Sounds, Soft. No: Distention, Tenderness Extremities: Yes: WNL Edema: No Labs: CBC, BMP 08/16/16 07:20 08/16/16 07:20 Assessment/Plan (1) Left hip pain Assessment/Plan: -appreciate pain management assistance -for MRI today -dispo pending results and pain management recommendations Code(s): M25.552 - PAIN IN LEFT HIP (2) Back pain Assessment/Plan: -as above Code(s): M54.9 - DORSALGIA, UNSPECIFIED Qualifiers: Back pain location: low back pain Chronicity: acute Back pain laterality: left Sciatica presence: with sciatica (3) Hypertension Assessment/Plan: -continue amlodipine and lisinopril -controlled Code(s): I10 - ESSENTIAL (PRIMARY) HYPERTENSION (4) Diabetes Assessment/Plan: -Hgb A1c is 6.8 -diet control Code(s): E11.9 - TYPE 2 DIABETES MELLITUS WITHOUT COMPLICATIONS Qualifiers: Diabetes mellitus complication status: without complication (5) UTI (urinary tract infection) Assessment/Plan: -appreciate ID assistance -finished full course of rocephin after today's dose Code(s): N39.0 - URINARY TRACT INFECTION, SITE NOT SPECIFIED Qualifiers: Urinary tract infection type: site unspecified Hematuria presence: without hematuria Qualified Code(s): N39.0 - Urinary tract infection, site not specified Dispo -pending MRI results and pain management recommendations
[2016-08-17] MEDS: oxyCODONE HCL 5 MG TABLET PO PRN ×2 (12:12→20:27)
[2016-08-17] MEDS: ACETAMINOPHEN 325 MG TABLET (FP) PO PRN (12:13)
--- NOTE | 2016-08-17 19:07 | PN ---
Progress Note, Physician Chief Complaint: back pain and left hip pain History of Present Illness: Patients MRI reviewed- severe LSS and l5 acute compression fracture. Pain is 10/10 patient cannot stand or walk due to pain - Current Medication List Current Medications: Active Medications Acetaminophen (Tylenol -) 650 mg PO Q6H PRN PRN Reason: FEVER OR PAIN Last Admin: 08/17/16 12:13 Dose: 650 mg Amlodipine Besylate (Norvasc -) 10 mg PO DAILY [facility] Last Admin: 08/17/16 09:56 Dose: 10 mg Ceftriaxone Sodium (Rocephin 1gm Ivpb (Pre-Docked)) 50 mls @ 100 mls/hr IVPB DAILY [facility] Last Admin: 08/17/16 09:57 Dose: 100 mls/hr Lidocaine (Lidoderm Patch -) 1 patch TP DAILY [facility] Last Admin: 08/17/16 09:57 Dose: 1 patch Lisinopril (Prinivil) 10 mg PO DAILY [facility] Last Admin: 08/17/16 09:56 Dose: 10 mg Oxycodone HCl (Roxicodone -) 5 mg PO Q4H PRN PRN Reason: MODERATE PAIN Last Admin: 08/17/16 12:12 Dose: 5 mg Ranitidine HCl (Zantac -) 150 mg PO BID [facility] Last Admin: 08/17/16 09:56 Dose: 150 mg - Objective Vital Signs: Vital Signs Temperature 98.9 F 08/17/16 14:10 Pulse Rate 67 08/17/16 14:10 Respiratory Rate 16 08/17/16 14:10 Blood Pressure 127/39 08/17/16 14:10 O2 Sat by Pulse Oximetry (%) 95 08/17/16 14:10 Labs: CBC, BMP 08/16/16 07:20 08/16/16 07:20 Assessment/Plan acute l5 compression fracture primary osteoporosi lumbar radiculopathy secondary to spinal stenosis Plan 1. L5 kyphoplasty with biopsy 2. Lumbar ANDREA 3. NPO after mid night 4. hold heparin
--- NOTE | 2016-08-18 08:19 | CON.ORTH ---
Consult Reason for Consultation:: right IT fx - Past Medical History Cardio/Vascular: Yes: HTN Gastrointestinal: Yes: Constipation, Other (adenomatous colon polyp) ...LMP Comment: PT IS 81 YEAR OLD ...: No Endocrine: Yes: Diabetes Mellitus - Past Surgical History Past Surgical History: Yes: Appendectomy - Alcohol/Substance Use Hx Alcohol Use: No History of Substance Use: reports: None - Smoking History Smoking history: Never smoked Have you smoked in the past 12 months: No If you are a former smoker, when did you quit?: 1985 - Social History Usual Living Arrangement: Other (with her brother) ADL: Independent 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 History of Recent Travel: No Home Medications - Allergies Allergies/Adverse Reactions: Allergies Allergy/AdvReac Type Severity Reaction Status Date / Time No Known Allergies Allergy Verified 08/12/16 14:48 - Home Medications Home Medications: Ambulatory Orders Amlodipine Besylate [Norvasc -] 10 mg PO DAILY tablet 06/16/16 Lisinopril [Prinivil] 10 mg PO DAILY tablet 06/16/16 Oxycodone HCl [Roxicodone -] 5 mg PO Q4H PRN #0 tablet MDD 30mg 06/16/16 Baclofen [Lioresal -] 10 mg PO DAILY PRN 06/18/16 Ranitidine [Zantac -] 150 mg PO BID 06/18/16 Lansoprazole [Prevacid] 30 mg PO DAILY 08/12/16 Family Disease History - Family Disease History Family Disease History: CA: Father ( 87 lung cancer), Mother ( 92 lung cancer), Sister (lung cancer) Physical Exam for Ortho Vital Signs: Vital Signs Temperature 98.1 F 08/18/16 06:00 Pulse Rate 66 08/18/16 06:00 Respiratory Rate 19 08/18/16 06:00 Blood Pressure 130/72 08/18/16 06:00 O2 Sat by Pulse Oximetry (%) 97 08/18/16 06:00 Labs: CBC, BMP 08/16/16 07:20 08/16/16 07:20 - Lower Extremity Hip: Yes: Exam WNL, Right, Other (full nonpainful ROM, able to SLR, nvi) Imaging - Results X-ray: Report Reviewed, Image Reviewed MRI: Report Reviewed, Image Reviewed Assessment/Plan 81 yo female with past medical history significant for hypertension, DM, s/p left hip loy-arthoplasty last year, h/o non displaced right hip fracture not requiring surgery, admitted with moderate to severe left hip pain and back pain. Patient had a hip fx that was treated conservatively back in May. Had MRI which confirmed non-displaced IT fx/ Greater troch fx. Patient is set to have kyphoplasty today. Denies any pain in the right hip. a/p- Right nondisplaced IT fx- healing- currently asymptomatic- continue to treat conservatively L5 compression fx, multi-level DDD NTD for right hip- tx conservatively WBAT Kyphoplasty today with Dr. Argueta d/w Dr. Maciel will follow
[2016-08-18] MEDS: amLODIPine BESYLATE 10 MG TABLET (FP) PO SCH (09:31)
[2016-08-18] MEDS: CEFTRIAXONE 50 ML IVPB SCH (09:32)
[2016-08-18] MEDS: LISINOPRIL 10 MG TABLET (FP) PO SCH (09:32)
[2016-08-18] MEDS: RANITIDINE HCL 150 MG TABLET (FP) PO SCH (09:32)
[2016-08-18] MEDS: LIDOCAINE 5% TOPICAL PATCH TP SCH (10:00)
--- NOTE | 2016-08-18 10:03 | PN ---
Progress Note, Physician Chief Complaint: Ms Espinosa says she is ready for the procedure. Currently pain is controlled while still. No cp, sob, n/v. - Current Medication List Current Medications: Active Medications Acetaminophen (Tylenol -) 650 mg PO Q6H PRN PRN Reason: FEVER OR PAIN Last Admin: 08/17/16 12:13 Dose: 650 mg Amlodipine Besylate (Norvasc -) 10 mg PO DAILY [facility] Last Admin: 08/17/16 09:56 Dose: 10 mg Ceftriaxone Sodium (Rocephin 1gm Ivpb (Pre-Docked)) 50 mls @ 100 mls/hr IVPB DAILY [facility] Last Admin: 08/17/16 09:57 Dose: 100 mls/hr Lidocaine (Lidoderm Patch -) 1 patch TP DAILY [facility] Last Admin: 08/17/16 09:57 Dose: 1 patch Lisinopril (Prinivil) 10 mg PO DAILY [facility] Last Admin: 08/17/16 09:56 Dose: 10 mg Oxycodone HCl (Roxicodone -) 5 mg PO Q4H PRN PRN Reason: MODERATE PAIN Last Admin: 08/17/16 20:27 Dose: 5 mg Ranitidine HCl (Zantac -) 150 mg PO BID [facility] Last Admin: 08/17/16 21:08 Dose: 150 mg - Objective Vital Signs: Vital Signs Temperature 98.1 F 08/18/16 06:00 Pulse Rate 66 08/18/16 06:00 Respiratory Rate 19 08/18/16 08:45 Blood Pressure 130/72 08/18/16 06:00 O2 Sat by Pulse Oximetry (%) 97 08/18/16 08:45 Constitutional: Yes: Well Nourished, No Distress, Calm Cardiovascular: Yes: Regular Rate and Rhythm. No: Gallop, Murmur, Rub Respiratory: Yes: Regular, CTA Bilaterally. No: Rales, Rhonchi, Wheezes Gastrointestinal: Yes: Normal Bowel Sounds, Soft. No: Distention, Tenderness Extremities: Yes: WNL Edema: No Labs: CBC, BMP 08/16/16 07:20 08/16/16 07:20 Assessment/Plan (1) Left hip pain Assessment/Plan: -appreciate pain management and ortho assistance -conservative management -kyphoplasty today -plan for discharge to SNF tomorrow Code(s): M25.552 - PAIN IN LEFT HIP (2) Back pain Assessment/Plan: -as above Code(s): M54.9 - DORSALGIA, UNSPECIFIED Qualifiers: Back pain location: low back pain Chronicity: acute Back pain laterality: left Sciatica presence: with sciatica (3) Hypertension Assessment/Plan: -continue amlodipine and lisinopril -controlled Code(s): I10 - ESSENTIAL (PRIMARY) HYPERTENSION (4) Diabetes Assessment/Plan: -Hgb A1c is 6.8 -diet control Code(s): E11.9 - TYPE 2 DIABETES MELLITUS WITHOUT COMPLICATIONS Qualifiers: Diabetes mellitus complication status: without complication (5) UTI (urinary tract infection) Assessment/Plan: -appreciate ID assistance -growing klebsiella -will finish a full course of rocephin today Code(s): N39.0 - URINARY TRACT INFECTION, SITE NOT SPECIFIED Qualifiers: Urinary tract infection type: site unspecified Hematuria presence: without hematuria Qualified Code(s): N39.0 - Urinary tract infection, site not specified Dispo -discharge tomorrow
[2016-08-18] MEDS ORDERED: PROPOFOL 20 ML ONE (11:10)
[2016-08-18] MEDS ORDERED: MIDAZOLAM HCL 2 MG/2 ML SINGLE DOSE VIAL ONE (11:10)
[2016-08-18] MEDS ORDERED: BUPIVACAINE HCL 0.25% 125 MG/50 ML VIAL ONE (11:11)
[2016-08-18] MEDS ORDERED: GUM MASTIC/STORAX/MSAL/ALCOHOL 1 DRP DROPSBTL MC ONE (11:12)
[2016-08-18] MEDS ORDERED: TRIAMCINOLONE ACET 40MG/1ML VIAL ONE (11:42)
--- NOTE | 2016-08-18 12:17 | PN ---
Progress Note, Physician History of Present Illness: stable patient going for kyphoplasty - Current Medication List Current Medications: Active Medications Acetaminophen (Tylenol -) 650 mg PO Q6H PRN PRN Reason: FEVER OR PAIN Last Admin: 08/17/16 12:13 Dose: 650 mg Amlodipine Besylate (Norvasc -) 10 mg PO DAILY [facility] Last Admin: 08/18/16 09:31 Dose: 10 mg Ceftriaxone Sodium (Rocephin 1gm Ivpb (Pre-Docked)) 50 mls @ 100 mls/hr IVPB DAILY [facility] Last Admin: 08/18/16 09:32 Dose: 100 mls/hr Lidocaine (Lidoderm Patch -) 1 patch TP DAILY [facility] Last Admin: 08/17/16 09:57 Dose: 1 patch Lisinopril (Prinivil) 10 mg PO DAILY [facility] Last Admin: 08/18/16 09:32 Dose: 10 mg Oxycodone HCl (Roxicodone -) 5 mg PO Q4H PRN PRN Reason: MODERATE PAIN Last Admin: 08/17/16 20:27 Dose: 5 mg Ranitidine HCl (Zantac -) 150 mg PO BID [facility] Last Admin: 08/18/16 09:32 Dose: 150 mg - Objective Vital Signs: Vital Signs Temperature 98.1 F 08/18/16 06:00 Pulse Rate 66 08/18/16 06:00 Respiratory Rate 19 08/18/16 08:45 Blood Pressure 130/72 08/18/16 06:00 O2 Sat by Pulse Oximetry (%) 97 08/18/16 08:45 Constitutional: Yes: No Distress, Calm Cardiovascular: Yes: Regular Rate and Rhythm Respiratory: Yes: Regular, CTA Bilaterally Gastrointestinal: Yes: Normal Bowel Sounds, Soft Musculoskeletal: Yes: WNL Extremities: Yes: WNL Neurological: Yes: Alert, Oriented Psychiatric: Yes: Alert, Oriented Labs: CBC, BMP 08/16/16 07:20 08/16/16 07:20 Assessment/Plan (1) Left hip pain Code(s): M25.552 - PAIN IN LEFT HIP (2) Back pain Code(s): M54.9 - DORSALGIA, UNSPECIFIED Qualifiers: Back pain location: low back pain Chronicity: acute Back pain laterality: left Sciatica presence: with sciatica (3) Hypertension Code(s): I10 - ESSENTIAL (PRIMARY) HYPERTENSION (4) Diabetes Code(s): E11.9 - TYPE 2 DIABETES MELLITUS WITHOUT COMPLICATIONS Qualifiers: Diabetes mellitus complication status: without complication (5) UTI (urinary tract infection) Code(s): N39.0 - URINARY TRACT INFECTION, SITE NOT SPECIFIED Qualifiers: Urinary tract infection type: site unspecified Hematuria presence: without hematuria Qualified Code(s): N39.0 - Urinary tract infection, site not specified organism noted plan finish abx rest continue as per primary
--- NOTE | 2016-08-18 12:24 | OP ---
Operative Note - Note: Operative Date: 08/18/16 Pre-Operative Diagnosis: Acute l5 compression fracture. primary osteoporosis. lumbar radiculopathy Operation: l5 kyphoplasty. l5 biopsy. lumbar epidural steroid injection Post-Operative Diagnosis: Same as Pre-op Surgeon: Farzad Argueta Anesthesia: MAC Specimens Removed: l5 biopsy Estimated Blood Loss (mls): 0
[2016-08-18] MEDS ORDERED: ONDANSETRON 4 MG/2 ML VIAL IVPUSH PRN (12:36)
[2016-08-18] MEDS ORDERED: LACTATED RINGERS SOLUTION 1,000 ML IV SCH (12:45)
[2016-08-18 13:23] VITALS: BP 122/72; PULSE 76; TEMP 98.3
--- NOTE | 2016-08-18 13:38 | DS ---
Physical Examination Vital Signs: Vital Signs Temperature 98.3 F 08/18/16 13:31 Pulse Rate 76 08/18/16 13:31 Respiratory Rate 16 08/18/16 13:31 Blood Pressure 122/72 08/18/16 13:31 O2 Sat by Pulse Oximetry (%) 98 08/18/16 13:31 Labs: CBC, BMP 08/16/16 07:20 08/16/16 07:20 Discharge Summary Reason For Visit: UTI/INABILITY TO AMBULATE Current Active Problems Acute kidney failure (Acute) Back pain (Acute) DVT prophylaxis (Acute) Diabetes (Acute) Fracture of left hip (Acute) Hypertension (Acute) Inability to ambulate due to hip (Acute) Intractable low back pain (Acute) Left hip pain (Acute) UTI (urinary tract infection) (Acute) Hospital Course: (1) Left hip pain Code(s): M25.552 - PAIN IN LEFT HIP (2) Back pain Code(s): M54.9 - DORSALGIA, UNSPECIFIED Qualifiers: Back pain location: low back pain Chronicity: acute Back pain laterality: left Sciatica presence: with sciatica (3) Hypertension Code(s): I10 - ESSENTIAL (PRIMARY) HYPERTENSION (4) Diabetes Code(s): E11.9 - TYPE 2 DIABETES MELLITUS WITHOUT COMPLICATIONS Qualifiers: Diabetes mellitus complication status: without complication (5) UTI (urinary tract infection) Code(s): N39.0 - URINARY TRACT INFECTION, SITE NOT SPECIFIED Qualifiers: Urinary tract infection type: site unspecified Hematuria presence: without hematuria Qualified Code(s): N39.0 - Urinary tract infection, site not specified Ms Espinosa is an 81 year old female who came in with L hip pain and a UTI. She was admitted to the hospital. She was treated with rocephin and finished a full course while here. She was seen by pain management and underwent an MRI. She was found to have L hip fracture which was old. Ortho saw her and again recommended medical management. She underwent kyphoplasty and tolerated it well , and this controlled her pain. She is safe for discharge to SNF. 33 minutes spent in preparation of this discharge Condition: Stable - Instructions Diet, Activity, Other Instructions: regular diet. activity per PT at SNF Referrals: Curtis Gipson MD [Primary Care Provider] - Fercho Maciel MD [Staff Physician] - Farzad Argueta MD [Staff Physician] - [facility] - Home Medications Comprehensive Discharge Medication List: Ambulatory Orders Amlodipine Besylate [Norvasc -] 10 mg PO DAILY tablet 06/16/16 Lisinopril [Prinivil] 10 mg PO DAILY tablet 06/16/16 Oxycodone HCl [Roxicodone -] 5 mg PO Q4H PRN #0 tablet MDD 30mg 06/16/16 Baclofen [Lioresal -] 10 mg PO DAILY PRN 06/18/16 Ranitidine [Zantac -] 150 mg PO BID 06/18/16 Lansoprazole [Prevacid] 30 mg PO DAILY 08/12/16 Acetaminophen [Tylenol .Regular Strength -] 650 mg PO Q6H PRN #0 tablet Lidocaine 5% Patch [Lidoderm -] 1 patch TP DAILY patch 08/18/16
--- NOTE | 2016-08-19 15:38 | PATH ---
Surgical Pathology Report Patient Name: MICHAELA CISSE Med. Rec. #: [id number] /Age/Gender: 1935 (Age: 81) / F Account: [id number] Location: [facility] MED-SURG Taken: 08/18/2016 Received: 08/18/2016 Reported: 08/19/2016 Physicians: Farzad Argueta M.D. Specimen(s) Received A: L5 VERTEBRAL BODY BIOPSY B: L5 BONE MARROW ASPIRATION Clinical History Inability to ambulate Vertebral fracture with abnormal MRI, rule out lymphoma, myeloma Final Diagnosis A. BONE, L5 VERTEBRAL BODY, BIOPSY: BONE WITH MARKED REACTIVE CHANGES AND FIBROSIS CONSISTENT WITH RESPONSE TO FRACTURE. NO METASTATIC CARCINOMA IDENTIFIED. BONE MARROW SHOWS NO MORPHOLOGIC EVIDENCE OF LYMPHOMA OR MULTIPLE MYELOMA. B. BONE, L5 VERTEBRAL BODY, ASPIRATE: DILUTE ASPIRATE MATERIAL WITH NO INTACT BONE MARROW PARTICLES IDENTIFIED ON SMEARS. FLOW CYTOMETRY performed and interpreted at [place], [place] ([id number]) shows the following: INTERPRETATION: In the sample analyzed, there is no evidence for abnormal myeloid maturation or an increased blast population. There is no evidence for a lymphoproliferative disorder or plasma cell dyscrasia. Electronically Signed Nestor Alicea M.D. Gross Description A. Received in formalin labeled "L5 vertebral body biopsy," is a 1.0 cm in length x 0.1 cm diameter [place], cylindrical portion of bone. The specimen is submitted in toto in one cassette, following decalcification. B. Received is a purple top tube of bone marrow aspirate which is sent to [facility]. /08/18/2016 saudi08/18/2016
== END 2016-08-18 16:47 | DRG 478 ==
LOC: FER 14:37 → FM/S 19:27
PROVIDERS: ADMIT Internal Medicine Geriatric Medicine; ATTEND Internal Medicine Geriatric Medicine
PROC: 0QU03JZ Supplement Lumbar Vertebra with Synthetic Substitute, Percutaneous Approach (ICD-10-PCS; 2016-08-18)
PROC: 3E0S33Z Introduction of Anti-inflammatory into Epidural Space, Percutaneous Approach (ICD-10-PCS; 2016-08-18)
PROC: 0QS03ZZ Reposition Lumbar Vertebra, Percutaneous Approach (ICD-10-PCS; principal; 2016-08-18 11:53)
PROC: 0QB03ZX Excision of Lumbar Vertebra, Percutaneous Approach, Diagnostic (ICD-10-PCS; 2016-08-18 11:53)
DX: M48.50XA Collapsed vertebra, not elsewhere classified, site unspecified, initial encounter for fracture (principal); N39.0 Urinary tract infection, site not specified; I10 Essential (primary) hypertension; E11.9 Type 2 diabetes mellitus without complications; M54.9 Dorsalgia, unspecified; M81.0 Age-related osteoporosis without current pathological fracture; M48.06 Spinal stenosis, lumbar region; Z91.14 Patient's other noncompliance with medication regimen
CPT/HCPCS: 36415; 71010-TC; 72100-TC; 72148-TC; 72195-TC; 73523-TC; 76001-TC; 80048; 80053; 81003; 81015; 83036; 83735; 84100; 85025; 87086; 87186; 88305-TC; 88311-TC; 88313-TC; 93005; 94760; 97116-GP; 97161-GP; 99284-25; J1644